=== PATIENT | male | born 1980 | race American Indian/Alaskan Native ===

== ENCOUNTER 2021-03-15 20:15 | Emergency (ER) | payer OTHER ==
--- NOTE | 2021-03-16 00:20 | XRay Report ---
Chest 2 views INDICATION: Chest pain with cough IMPRESSION: Severe bilateral multifocal airspace pneumonia. The heart is borderline enlarged. No pleu ral effusion. Signer Name: Tra Mejias MD Signed: 03/16/2021 12:16 AM Workstation Name: [id number]
--- NOTE | 2021-03-16 01:08 | Emergency Department Report ---
- General Chief Complaint: Upper Respiratory Infection Stated Complaint: HEART BEATING FAST Source: patient Mode of arrival: Ambulatory Limitations: No Limitations - History of Present Illness Initial Comments: Patient is a 41-year-old -Palest[place] male with a history of HIV and on oral ARV medications presents to the ED with complaint of acute onset persistent nasal and sinus congestion, persistent dry cough and intermittent chills for the last 2 weeks, worse in the last 3 days. Patient states that he has also been feeling lightheaded with body aches and pains. Patient states that he has been taking [id number] medications with no relief. Patient denies fever, nausea and vomiting, chest pain or shortness of breath, dizziness, syncope, abdominal pain, dysuria, urinary frequency and urgency, sore throat or diarrhea. Patient states that no one else at home is at similar symptoms. MD Complaint: cough, rhinorrhea, nasal congestion, sinus pain -: Sudden, week(s) (2) Severity: moderate Severity scale (0 -10): 4 Quality: dull, aching Consistency: constant Improves With: nothing Worsens With: nothing Context: sick contacts Associated Symptoms: denies other symptoms, chills, myalgias, headache, rhinorrhea, nasal congestion, cough. denies: fever, diaphoresis, sore throat, stiff neck, chest pain, shortness of breath, abdominal pain, nausea, vomiting, diarrhea, dysuria, rash, confusion, right sweats, weight loss, epistaxis, hoarseness, ear pain Treatments Prior to Arrival: Ibuprofen, "cold medicine" - Related Data Previous Rx's Medication Instructions Recorded Last Taken Type Ibuprofen [Motrin 600 MG tab] 600 mg PO Q8H PRN #20 tablet 07/25/19 Unknown Rx Methocarbamol [Robaxin] 500 mg PO BID PRN #15 tablet 07/25/19 Unknown Rx Albuterol Sulfate [Proventil Hfa] 1 - 2 puff IH Q6H PRN #1 hfa.aer.ad 03/16/21 Unknown Rx Benzonatate [Tessalon Perles] 100 mg PO Q8HR #30 capsule 03/16/21 Unknown Rx Doxycycline Hyclate 100 mg PO Q12H #20 tablet. 03/16/21 Unknown Rx Sulfamethoxazole/Trimethoprim 1 each PO Q12H #20 tablet 03/16/21 Unknown Rx [Bactrim DS TAB] methylPREDNISolone [Medrol 4MG 4 mg PO DAILY #21 tab.ds.pk 03/16/21 Unknown Rx DOSEPAK (21 tabs)] Allergies Allergy/AdvReac Type Severity Reaction Status Date / Time No Known Allergies Allergy Unverified 07/25/19 12:04 ED Review of Systems ROS: Stated complaint: HEART BEATING FAST Other details as noted in HPI Constitutional: chills, malaise, weakness. denies: fever Eyes: denies: eye pain, eye discharge, vision change ENT: congestion. denies: ear pain, throat pain Respiratory: cough. denies: shortness of breath, wheezing Cardiovascular: denies: chest pain, palpitations Endocrine: no symptoms reported Gastrointestinal: denies: abdominal pain, nausea, vomiting, diarrhea Genitourinary: denies: urgency, dysuria Musculoskeletal: arthralgia, myalgia. denies: back pain, joint swelling Skin: denies: rash, lesions Neurological: denies: headache, weakness, paresthesias Psychiatric: denies: anxiety, depression Hematological/Lymphatic: denies: easy bleeding, easy bruising ED Past Medical Hx - Past Medical History Previous Medical History?: Yes Hx HIV: Yes - Surgical History Past Surgical History?: Yes Additional Surgical History: Hx of back surgery - Social History Smoking Status: Never Smoker Substance Use Type: None - Medications Home Medications: Home Medications Medication Instructions Recorded Confirmed Last Taken Type Ibuprofen [Motrin 600 MG tab] 600 mg PO Q8H PRN #20 tablet 07/25/19 Unknown Rx Methocarbamol [Robaxin] 500 mg PO BID PRN #15 tablet 07/25/19 Unknown Rx Albuterol Sulfate [Proventil Hfa] 1 - 2 puff IH Q6H PRN #1 hfa.aer.ad 03/16/21 Unknown Rx Benzonatate [Tessalon Perles] 100 mg PO Q8HR #30 capsule 03/16/21 Unknown Rx Doxycycline Hyclate 100 mg PO Q12H #20 tablet. 03/16/21 Unknown Rx Sulfamethoxazole/Trimethoprim 1 each PO Q12H #20 tablet 03/16/21 Unknown Rx [Bactrim DS TAB] methylPREDNISolone [Medrol 4MG 4 mg PO DAILY #21 tab.ds.pk 03/16/21 Unknown Rx DOSEPAK (21 tabs)] ED Physical Exam - General Limitations: No Limitations General appearance: alert, in no apparent distress - Head Head exam: Present: atraumatic, normocephalic, normal inspection - Eye Eye exam: Present: normal appearance, PERRL, EOMI Pupils: Present: normal accommodation - ENT ENT exam: Present: normal exam, normal orophraynx, mucous membranes moist, TM's normal bilaterally, normal external ear exam - Neck Neck exam: Present: normal inspection, full ROM - Respiratory Respiratory exam: Present: normal lung sounds bilaterally. Absent: respiratory distress, wheezes, rales, rhonchi, stridor, chest wall tenderness, accessory muscle use - Cardiovascular Cardiovascular Exam: Present: regular rate, normal rhythm, normal heart sounds. Absent: systolic murmur, diastolic murmur, rubs, gallop - GI/Abdominal GI/Abdominal exam: Present: soft, normal bowel sounds. Absent: tenderness, guarding, rebound, hyperactive bowel sounds - Extremities Exam Extremities exam: Present: normal inspection, full ROM, normal capillary refill - Back Exam Back exam: Present: normal inspection, full ROM. Absent: tenderness, CVA tenderness (R), CVA tenderness (L), muscle spasm, paraspinal tenderness, vertebral tenderness - Neurological Exam Neurological exam: Present: alert, oriented X3, CN II-XII intact, normal gait, reflexes normal - Psychiatric Psychiatric exam: Present: normal affect, normal mood - Skin Skin exam: Present: warm, dry, intact, normal color. Absent: rash ED Course Vital Signs 03/15/21 20:43 Pulse Rate 94 H Respiratory 16 Rate Blood Pressure 109/88 [Right] O2 Sat by Pulse 98 Oximetry ED Medical Decision Making - Radiology Data Radiology results: report reviewed, image reviewed [address] [address] XRay Report Signed Patient: JUNIOR MJ MR#: [id number] : 1980 Acct:[id number] Age/Sex: 41 / M ADM Date: 03/15/21 Loc: ED Attending Dr: Ordering Physician: ARELI PATHAK Date of Service: 03/15/21 Procedure(s): XR chest routine 2V Accession Number(s): [id number] cc: ARELI PATHAK Fluoro Time In Minutes: Chest 2 views INDICATION: Chest pain with cough IMPRESSION: Severe bilateral multifocal airspace pneumonia. The heart is borderline enlarged. No pleural effusion. Signer Name: Tra Mejias MD Signed: 03/16/2021 12:16 AM Workstation Name: [id number] Transcribed By: Dictated By: Tra Mejias MD Electronically Authenticated By: Tra Mejias MD Signed Date/Time: 03/16/2115 DD/ TD/TT: - Medical Decision Making This is a 41-year-old -Palestinian male with a history of HIV and on oral ARV medications presents to the ED with complaint of acute onset persistent nasal and sinus congestion, persistent dry cough and intermittent chills for the last 2 weeks, worse in the last 3 days. Patient states that he has also been feeling lightheaded with body aches and pains. Patient states that he has been taking [id number] medications with no relief. In the ED, patient is alert and oriented x3 and is not in any distress with normal vital signs and oxygen saturation is 98% in room air. Chest x-ray shows severe bilateral multifocal airspace pneumonia. The heart is borderline enlarged. No pleural effusion. Patient received Rocephin 1 g IM x1 and azithromycin 500 mg p.o. x1 in the ED. Patient is hemodynamically stable and was discharged home on antibiotics, albuterol inhaler, and cough medication and was advised to follow-up with his primary care physician in 7 to 10 days for reevaluation. Patient was advised to return to the ED immediately if symptoms get worse. - Differential Diagnosis Bronchitis; pneumonia; COVID-19; URI; Critical care attestation.: If time is entered above; I have spent that time in minutes in the direct care of this critically ill patient, excluding procedure time. ED Disposition Clinical Impression: Acute upper respiratory infection Community acquired pneumonia Qualifiers: Laterality: unspecified laterality Qualified Code(s): J18.9 - Pneumonia, unspecified organism Disposition: HOME / SELF CARE / HOMELESS Is pt being admited?: No Does the pt Need Aspirin: No Condition: Stable Instructions: Bacterial Pneumonia (ED), Upper Respiratory Infection, Adult, Xygq-hp-[id number], Community-Acquired Pneumonia, Adult, Ajgk-ce-Ulyu, Cough, Adult, Rakw-vo-Dogr Additional Instructions: Take medication with food, drink plenty of fluids and follow-up with your primary care physician in 7 to 10 days for reevaluation. Return to the ED immediately if symptoms get worse. Prescriptions: Sulfamethoxazole/Trimethoprim [Bactrim DS TAB] 1 each PO Q12H #20 tablet Doxycycline Hyclate 100 mg PO Q12H #20 tablet. methylPREDNISolone [Medrol 4MG DOSEPAK (21 tabs)] 4 mg PO DAILY #21 tab.ds.pk Albuterol Sulfate [Proventil Hfa] 1 - 2 puff IH Q6H PRN #1 hfa.aer.ad PRN Reason: Shortness Of Breath Benzonatate [Tessalon Perles] 100 mg PO Q8HR #30 capsule Referrals: [facility] [Provider Group] - 3-5 Days Time of Disposition: 01:10 Print Language: KOREAN
[2021-03-16] MEDS ORDERED: LIDOCAINE-MPF (1%) 10 MG/1 ML VIAL 5 ML INFILTRATI ONE (01:14)
[2021-03-16] MEDS ORDERED: AZITHROMYCIN 250 MG TAB PO ONE (01:14)
[2021-03-16 02:36] VITALS: BP 131/85
== END 2021-03-16 02:36 | disposition home or self-care (01) ==
LOC: ED 20:15
DX: J06.9 Acute upper respiratory infection, unspecified (principal); J18.9 Pneumonia, unspecified organism; Z79.899 Other long term (current) drug therapy; Z21 Asymptomatic human immunodeficiency virus [HIV] infection status; Z98.890 Other specified postprocedural states
CPT/HCPCS: 71046; 96372; 99283; J0696

== ENCOUNTER 2021-05-29 17:40 | Inpatient (IN) | payer SELFPAY ==
[2021-05-29] MEDS ORDERED: ASPIRIN 325 MG TAB PO ONE (19:51)
[2021-05-29] MEDS ORDERED: predniSONE 20 MG TAB PO ONE (19:51)
--- NOTE | 2021-05-29 20:19 | XRay Report ---
CHEST 2 VIEWS INDICATION / CLINICAL INFORMATION: Dyspnea. COMPARISON: 03/15/2021 FINDINGS: SUPPORT DEVICES: None. HEART / MEDIASTINUM: Upper limits of normal heart size. LUNGS / PLEURA: Pulmonary vascular indistinctness. No focal consolidation. No pneumothorax. ADDITIONAL FINDINGS: No significant additional findings. IMPRESSION: 1. Mild pulmonary edema. Signer Name: Alvin Groves DO Signed: 05/29/2021 8:14 PM Workstation Name: [id number]
[2021-05-29 20:55] LABS: Hemoglobin 13.6 gm/dl (11.8-15.2); Red Blood Count 4.49 M/mm3 (3.65-5.03)
[2021-05-29 20:56] LABS: Basophils # (Auto) 0.1 K/mm3 (0.0-0.1); Eosinophils % (Auto) 0.6 % (0.0-4.3); Hematocrit 41.7 % (35.5-45.6); Lymphocytes # (Auto) 3.3 K/mm3 (1.2-5.4); Mean Corpuscular HGB Conc 33 % (32-34); Mean Corpuscular Volume 93 fl (84-94); Monocytes # (Auto) 0.5 K/mm3 (0.0-0.8); Monocytes % (Auto) 6.8 % (0.0-7.3); Platelet Count 244 K/mm3 (140-440); Red Cell Distribution Width 13.6 % (13.2-15.2)
[2021-05-29 21:11] LABS: Bacteria,Urine 1+ /HPF (Negative); Bilirubin,Urine NEG (Negative); Blood,Urine NEG (Negative); Color,Urine Yellow (Yellow); Mucus,Urine FEW /HPF; Urobilinogen,Urine < 2.0 mg/dL (<2.0)
[2021-05-29 21:15] LABS: Protein,Urine >500 mg/dL (Negative)
[2021-05-29 22:07] LABS: Alanine Aminotransferase 66 units/L (7-56); Albumin 3.8 g/dL (3.9-5); BUN/Creatinine Ratio 15; Blood Urea Nitrogen 16 mg/dL (9-20); Calcium 9.1 mg/dL (8.4-10.2); Hemolysis Index 30
[2021-05-29] MEDS ORDERED: FUROSEMIDE 40 MG/4 ML INJ IV ONE (22:33)
--- NOTE | 2021-05-29 22:41 | Emergency Department Report ---
ED Chest Pain HPI - General Chief Complaint: Chest Pain Stated Complaint: CHEST PAIN Source: patient Mode of arrival: Ambulatory Limitations: No Limitations - History of Present Illness Initial Comments: Patient is a 41-year-old -Turkmen male with a history of HIV and on ARV medications, who presents to the ED with complaint of acute onset persistent shortness of breath on exertion, diffuse chest pressure and pain intermittently for the last 2 weeks worse in the last 3 days. Patient states that walking even from his bedroom to the bathroom causes him to be short of breath. Patient denies fever, chills, nausea, vomiting, diarrhea, dizziness, syncope, palpitations, change in vision, cough, abdominal pain, dysuria, urinary frequency and urgency or sore throat. MD Complaint: chest pain, other (dyspnea, generalized weakness) -: Sudden, week(s) (2) Onset: during exertion Pain Location: substernal Pain Radiation: none Severity: moderate Severity scale (0 -10): 5 Quality: aching, dull, pressure Consistency: intermittent Improves With: rest Worsens With: exertion, movement re: dyspnea. denies: nausea, vomting, diaphoresis, sense of impending doom Other Symptoms: cough. denies: fever, syncope, rash, acid taste in mouth, leg swelling, palpitations, burping, other Treatments Prior to Arrival: none - Related Data On Oral Contraceptives: No Previous Rx's Medication Instructions Recorded Last Taken Type Ibuprofen [Motrin 600 MG tab] 600 mg PO Q8H PRN #20 tablet 07/25/19 Unknown Rx Methocarbamol [Robaxin] 500 mg PO BID PRN #15 tablet 07/25/19 Unknown Rx Albuterol Sulfate [Proventil Hfa] 1 - 2 puff IH Q6H PRN #1 hfa.aer.ad 03/16/21 Unknown Rx Benzonatate [Tessalon Perles] 100 mg PO Q8HR #30 capsule 03/16/21 Unknown Rx Doxycycline Hyclate 100 mg PO Q12H #20 tablet. 03/16/21 Unknown Rx Sulfamethoxazole/Trimethoprim 1 each PO Q12H #20 tablet 03/16/21 Unknown Rx [Bactrim DS TAB] methylPREDNISolone [Medrol 4MG 4 mg PO DAILY #21 tab.ds.pk 03/16/21 Unknown Rx DOSEPAK (21 tabs)] Allergies Allergy/AdvReac Type Severity Reaction Status Date / Time No Known Allergies Allergy Unverified 07/25/19 12:04 Heart Score - HEART Score History: Slightly suspicious EKG: Non-specific Age: < 45 Risk factors: 1-2 risk factors Troponin: < normal limit HEART Score: 2 - EKG Read Time Time EKG Completed: 17:49 EKG Read Time: 17:49 - Critical Actions Critical Actions: 0-3 pts:0.9-1.7%risk of adverse cardiac event.Candidate for discharge ED Review of Systems ROS: Stated complaint: CHEST PAIN Other details as noted in HPI Constitutional: denies: chills, fever Eyes: denies: eye pain, eye discharge, vision change ENT: denies: ear pain, throat pain Respiratory: cough, orthopnea, shortness of breath, SOB with exertion. denies: wheezing Cardiovascular: chest pain (pressure), dyspnea on exertion. denies: palpitations Endocrine: no symptoms reported Gastrointestinal: denies: abdominal pain, nausea, vomiting, diarrhea Genitourinary: denies: urgency, dysuria Musculoskeletal: denies: back pain, joint swelling, arthralgia Skin: denies: rash, lesions Neurological: denies: headache, weakness, paresthesias Psychiatric: denies: anxiety, depression Hematological/Lymphatic: denies: easy bleeding, easy bruising ED Past Medical Hx - Past Medical History Hx HIV: Yes - Surgical History Past Surgical History?: Yes Additional Surgical History: Hx of back surgery - Social History Smoking Status: Never Smoker Substance Use Type: None - Medications Home Medications: Home Medications Medication Instructions Recorded Confirmed Last Taken Type Ibuprofen [Motrin 600 MG tab] 600 mg PO Q8H PRN #20 tablet 07/25/19 Unknown Rx Methocarbamol [Robaxin] 500 mg PO BID PRN #15 tablet 07/25/19 Unknown Rx Albuterol Sulfate [Proventil Hfa] 1 - 2 puff IH Q6H PRN #1 hfa.aer.ad 03/16/21 Unknown Rx Benzonatate [Tessalon Perles] 100 mg PO Q8HR #30 capsule 03/16/21 Unknown Rx Doxycycline Hyclate 100 mg PO Q12H #20 tablet. 03/16/21 Unknown Rx Sulfamethoxazole/Trimethoprim 1 each PO Q12H #20 tablet 03/16/21 Unknown Rx [Bactrim DS TAB] methylPREDNISolone [Medrol 4MG 4 mg PO DAILY #21 tab.ds.pk 03/16/21 Unknown Rx DOSEPAK (21 tabs)] ED Physical Exam - General Limitations: No Limitations General appearance: alert, in no apparent distress - Head Head exam: Present: atraumatic, normocephalic, normal inspection - Eye Eye exam: Present: normal appearance, PERRL, EOMI Pupils: Present: normal accommodation - ENT ENT exam: Present: normal exam, normal orophraynx, mucous membranes moist, TM's normal bilaterally, normal external ear exam - Neck Neck exam: Present: normal inspection, full ROM - Respiratory Respiratory exam: Present: normal lung sounds bilaterally. Absent: respiratory distress, wheezes, rales, chest wall tenderness, accessory muscle use, decreased breath sounds, prolonged expiratory - Cardiovascular Cardiovascular Exam: Present: regular rate, normal rhythm, normal heart sounds. Absent: systolic murmur, diastolic murmur, rubs, gallop - GI/Abdominal GI/Abdominal exam: Present: soft, normal bowel sounds. Absent: tenderness, guarding, rebound, hyperactive bowel sounds, hypoactive bowel sounds, organomegaly - Extremities Exam Extremities exam: Present: normal inspection, full ROM, normal capillary refill - Back Exam Back exam: Present: normal inspection, full ROM. Absent: tenderness, CVA tenderness (R), CVA tenderness (L), muscle spasm, paraspinal tenderness, verteb ral tenderness - Neurological Exam Neurological exam: Present: alert, oriented X3, CN II-XII intact, normal gait, reflexes normal - Psychiatric Psychiatric exam: Present: normal affect, normal mood - Skin Skin exam: Present: warm, dry, intact, normal color. Absent: rash JEREMY score - Jeremy Score Age > 65: (0) No Aspirin use within the Past 7 Days: (0) No 3 or more CAD Risk Factors: (0) No 2 or more Angina events in past 24 hrs: (0) No Known CAD with more than 50% Stenosis: (0) No Elevated Cardiac Markers: (0) No ST Deviation Greater than 0.5mm: (0) No JEREMY Score: 0 ED Medical Decision Making - Lab Data Result diagrams: 05/29/21 20:24 05/29/21 20:24 - EKG Data EKG shows normal: sinus rhythm Rate: normal - EKG Data Interpretation: normal EKG 05/29/21 22:51 The EKG shows normal sinus rhythm with a ventricular rate of 89 bpm but with probable left ventricular hypertrophy and nonspecific T wave abnormalities. - Radiology Data Radiology results: report reviewed, image reviewed [facility] [address] [place] [address] XRay Report Signed Patient: JUNIOR MJ MR#: [id number] : 1980 Acct:[id number] Age/Sex: 41 / M ADM Date: 05/29/21 Loc: ED Attending Dr: Ordering Physician: ARELI PATHAK Date of Service: 05/29/21 Procedure(s): XR chest routine 2V Accession Number(s): [id number] cc: ARELI PATHAK Fluoro Time In Minutes: CHEST 2 VIEWS INDICATION / CLINICAL INFORMATION: Dyspnea. COMPARISON: 03/15/2021 FINDINGS: SUPPORT DEVICES: None. HEART / MEDIASTINUM: Upper limits of normal heart size. LUNGS / PLEURA: Pulmonary vascular indistinctness. No focal consolidation. No pneumothorax. ADDITIONAL FINDINGS: No significant additional findings. IMPRESSION: 1. Mild pulmonary edema. Signer Name: Alvin Gutierres DO Signed: 05/29/2021 8:14 PM Workstation Name: [id number] Transcribed By: ROHAN Dictated By: ALVIN GUTIERRES DO Electronically Authenticated By: ALVIN GUTIERRES DO Signed Date/Time: 05/29/212013 DD/ 12 TD/TT: - Medical Decision Making This is a 41-year-old -Turkmen male with a history of HIV and on ARV medications, who presents to the ED with complaint of acute onset persistent shortness of breath on exertion, diffuse chest pressure and pain intermittently for the last 2 weeks worse in the last 3 days. Patient states that walking even from his bedroom to the bathroom causes him to be short of breath. In the ED, patient is alert and oriented x3 and is not in any distress. Patient is hemodynamically stable with oxygen saturation of 100% in room air. Chest x-ray shows mild Pulmonary edema. Lab test results were reviewed and showed a normal initial troponin level, elevated LFTs with AST of 58 and ALT of 66 and a BNP of 4313. The EKG shows normal sinus rhythm with a ventricular rate of 89 bpm but with probable left ventricular hypertrophy and nonspecific T wave abnormalities. Patient was treated in the ED initially with aspirin 325 mg p.o. x1 and oral steroids for prednisone 60 mg p.o. x1. These findings were discussed with the ED attending physician Dr. Martinez who advised the patient be admitted to the hospital since this is a new onset CHF. I therefore paged and discussed the patient's case with the hospitalist physician on-call Dr. Sales who admitted the patient to the hospital for further evaluation. Meanwhile patient was started on Lasix 40 mg IV x1 and placed on equipment monitor phototypesetting. - Differential Diagnosis CHF, Pneumonia, Covid-19, ACS, PE Critical Care Time: Yes Critical care time in (mins) excluding proc time.: 35 Critical care attestation.: If time is entered above; I have spent that time in minutes in the direct care of this critically ill patient, excluding procedure time. Critical care time of 35 minutes spent on patient counseling and education regarding his care, interpretation of lab test results and imaging reports, documentation and discussion with specialists. Critical Care Time: Critical care time of 35 minutes spent on patient counseling and education regarding his care, interpretation of lab test results and imaging reports, documentation and discussion with specialists. ED Disposition Clinical Impression: Shortness of breath on exertion, Nonspecific chest pain, New onset of congestive heart failure Disposition: 02 [facility]ORT TERM [facility]OSPITAL Is pt being admited?: Yes Does the pt Need Aspirin: Yes Condition: Stable Instructions: Nonspecific Chest Pain, Adult Referrals: PRIMARY CARE, [Primary Care Provider] - 3-5 Days Time of Disposition: 22:44 Print Language: CYPRIOT
[2021-05-29] MEDS ORDERED: ONDANSETRON 4 MG/2 ML INJ IV PRN (22:56)
[2021-05-29] MEDS ORDERED: oxyCODONE /ACETAMINOPHEN 5-325MG TAB PO PRN (22:56)
[2021-05-29] MEDS ORDERED: MORPHINE 4 MG/1 ML INJ IV PRN (22:56)
[2021-05-29] MEDS ORDERED: ACETAMINOPHEN 325 MG TAB PO PRN (22:56)
[2021-05-29] MEDS ORDERED: NITROGLYCERIN 0.4 MG TAB SUBL SL PRN (23:36)
[2021-05-29] MEDS ORDERED: HYDROmorphone 1 MG/1 ML INJ IV PRN (23:36)
[2021-05-29] MEDS ORDERED: traMADol 50 MG TAB PO PRN (23:36)
[2021-05-29] MEDS ORDERED: IBUPROFEN 600 MG TAB PO PRN (23:39)
--- NOTE | 2021-05-29 23:44 | History and Physical Report ---
History of Present Illness Date of examination: 05/29/21 Date of admission: 05/29/21 Chief complaint: Chest pain Shortness of breath History of present illness: 41-year-old male with history of HIV and on ARV medications, who presents to the ED with complaint of acute onset persistent shortness of breath on exertion, diffuse chest pressure and pain intermittently for the last 2 weeks worse in the last 3 days. Patient states that walking even from his bedroom to the bathroom causes him to be short of breath. Patient denies fever, chills, nausea, vomiting, diarrhea, dizziness, syncope, palpitations, change in vision, cough, abdominal pain, dysuria, urinary frequency and urgency or sore throat. In the emergency room patient is found to have acute CHF exacerbation patient chest x-ray showed mild pulmonary edema also patient proBNP is 4313 but troponin is 0.010. Med rec is done Past History Past Medical History: HIV/AIDS Medications and Allergies Allergies Allergy/AdvReac Type Severity Reaction Status Date / Time No Known Allergies Allergy Verified 05/29/21 22:59 Home Medications Medication Instructions Recorded Confirmed Last Taken Type Ibuprofen [Motrin 600 MG tab] 600 mg PO Q8H PRN #20 tablet 07/25/19 Unknown Rx Methocarbamol [Robaxin] 500 mg PO BID PRN #15 tablet 07/25/19 Unknown Rx Albuterol Sulfate [Proventil Hfa] 1 - 2 puff IH Q6H PRN #1 hfa.aer.ad 03/16/21 Unknown Rx Benzonatate [Tessalon Perles] 100 mg PO Q8HR #30 capsule 03/16/21 Unknown Rx Doxycycline Hyclate 100 mg PO Q12H #20 tablet. 03/16/21 Unknown Rx Sulfamethoxazole/Trimethoprim 1 each PO Q12H #20 tablet 03/16/21 Unknown Rx [Bactrim DS TAB] methylPREDNISolone [Medrol 4MG 4 mg PO DAILY #21 tab.ds.pk 03/16/21 Unknown Rx DOSEPAK (21 tabs)] Active Meds: Active Medications Acetaminophen (Acetaminophen 325 Mg Tab) 650 mg PO Q4H PRN PRN Reason: Pain MILD(1-3)/Fever >100.5/MARTELL Morphine Sulfate (Morphine 4 Mg/1 Ml Inj) 4 mg IV Q4H PRN PRN Reason: Pain , Severe (7-10) Ondansetron HCl (Ondansetron 4 Mg/2 Ml Inj) 4 mg IV Q8H PRN PRN Reason: Nausea And Vomiting Last Admin: 05/29/21 23:15 Dose: 4 mg Documented by: Oxycodone/Acetaminophen (Oxycodone /Acetaminophen 5-325mg Tab) 1 tab PO Q6H PRN PRN Reason: Pain, Moderate (4-6) Sodium Chloride (Sodium Chloride 0.9% 10 Ml Flush Syringe) 10 ml IV BID DARVIN Sodium Chloride (Sodium Chloride 0.9% 10 Ml Flush Syringe) 10 ml IV PRN PRN PRN Reason: LINE FLUSH Review of Systems All systems: negative Cardiovascular: chest pain, orthopnea, shortness of breath, dyspnea on exertion Exam - Constitutional Vitals: Temp Pulse Resp BP Pulse Ox 96 H 18 129/85 100 05/29/21 18:34 05/29/21 18:34 05/29/21 18:34 05/29/21 18:34 General appearance: Present: no acute distress, well-nourished - EENT Eyes: Present: PERRL ENT: hearing intact, clear oral mucosa - Neck Neck: Present: supple, normal ROM - Respiratory Respiratory effort: normal Respiratory: bilateral: rales - Cardiovascular Heart Sounds: Present: S1 & S2. Absent: rub, click - Extremities Extremities: pulses symmetrical, No edema Peripheral Pulses: within normal limits - Abdominal General gastrointestinal: Present: soft, non-tender, non-distended, normal bowel sounds Male genitourinary: Present: normal - Integumentary Integumentary: Present: clear, warm, dry - Musculoskeletal Musculoskeletal: gait normal, strength equal bilaterally - Psychiatric Psychiatric: appropriate mood/affect, intact judgment & insight - Neurologic Neurologic: CNII-XII intact, moves all extremities HEART Score - HEART Score EKG: Non-specific Age: < 45 Risk factors: 1-2 risk factors Troponin: Troponin T < 0.010 ng/mL (0.00-0.029) 05/29/21 20:24 Troponin: < normal limit - Critical Actions Critical Actions: 0-3 pts:0.9-1.7%risk of adverse cardiac event.Candidate for discharge Results - Labs CBC & Chem 7: 05/29/21 20:24 05/29/21 20:24 Labs: Laboratory Last Values WBC 6.6 K/mm3 (4.5-11.0) 05/29/21 20: RBC 4.49 M/mm3 (3.65-5.03) 05/29/21 20: Hgb 13.6 gm/dl (11.8-15.2) 05/29/21 20:24 Hct 41.7 % (35.5-45.6) 05/29/21 20: MCV 93 fl (84-94) 05/29/21 20: MCH 30 pg (28-32) 05/29/21 20: MCHC 33 % (32-34) 05/29/21 20: RDW 13.6 % (13.2-15.2) 05/29/21: Plt Count 244 K/mm3 (140-440) 05/29/21 20: Lymph % (Auto) 50.0 % (13.4-35.0) H 05/29/21: [place] % (Auto) 6.8 % (0.0-7.3) 05/29/21: Eos % (Auto) 0.6 % (0.0-4.3) 05/29/21: Baso % (Auto) 1.0 % (0.0-1.8) 05/29/21: Lymph # (Auto) 3.3 K/mm3 (1.2-5.4) 05/29/21 20: [place] # (Auto) 0.5 K/mm3 (0.0-0.8) 05/29/21: Eos # (Auto) 0.0 K/mm3 (0.0-0.4) 05/29/21 20: Baso # (Auto) 0.1 K/mm3 (0.0-0.1) 05/29/21: Seg Neutrophils % 41.6 % (40.0-70.0) 05/29/21: Seg Neutrophils # 2.7 K/mm3 (1.8-7.7) 05/29/21 20:24 Sodium 137 mmol/L (137-145) 05/29/21 20: Potassium 4.4 mmol/L (3.6-5.0) 05/29/21 20: Chloride 104.8 mmol/L (98-107) 05/29/21 20:24 Carbon Dioxide 20 mmol/L (22-30) L 05/29/21 20:24 Anion Gap 17 mmol/L 05/29/21 20:24 BUN 16 mg/dL (9-20) 05/29/21 20:24 Creatinine 1.1 mg/dL (0.8-1.3) 05/29/21 20:24 Estimated GFR > 60 ml/min 05/29/21 20:24 BUN/Creatinine Ratio 15 % 05/29/21 20:24 Glucose 78 mg/dL (75-100) 05/29/21 20:24 Calcium 9.1 mg/dL (8.4-10.2) 05/29/21 20:24 Total Bilirubin 1.00 mg/dL (0.1-1.2) 05/29/21 20:24 AST 58 units/L (5-40) H 05/29/21 20:24 ALT 66 units/L (7-56) H 05/29/21 20:24 Alkaline Phosphatase 110 units/L (35-129) 05/29/21 20:24 Troponin T < 0.010 ng/mL (0.00-0.029) 05/29/21 20:24 NT-Pro-B Natriuret Pep 4313 pg/mL (0-450) H 05/29/21 20:24 Total Protein 7.4 g/dL (6.3-8.2) 05/29/21 20:24 Albumin 3.8 g/dL (3.9-5) L 05/29/21 20:24 Albumin/Globulin Ratio 1.1 % 05/29/21 20: Urine Color Yellow (Yellow) 05/29/21 20:23 Urine Turbidity Clear (Clear) 05/29/21 20:23 Urine pH 5.0 (5.0-7.0) 05/29/21 20: Ur Specific [place] 1.022 (1.003-1.030) 05/29/21 20: Urine Protein >500 mg/dL (Negative) 05/29/21 20: Urine Glucose (UA) Neg mg/dL (Negative) 05/29/21 20: Urine Ketones Tr mg/dL (Negative) 05/29/21 20: Urine Blood Neg (Negative) 05/29/21 20:23 Urine Nitrite Neg (Negative) 05/29/21 20:23 Urine Bilirubin Neg (Negative) 05/29/21 20:23 Urine Urobilinogen < 2.0 mg/dL (<2.0) 05/29/21 20:23 Ur Leukocyte Esterase Neg (Negative) 05/29/21 20:23 Urine WBC (Auto) 2.0 /HPF (0.0-6.0) 05/29/21 20:23 Urine RBC (Auto) 2.0 /HPF (0.0-6.0) 05/29/21 20:23 U Epithel Cells (Auto) 1.0 /HPF (0-13.0) 05/29/21 20:23 Urine Bacteria (Auto) 1+ /HPF (Negative) 05/29/21 20: Urine Mucus Few /HPF 05/29/21 20:23 - Imaging and Cardiology Chest x-ray: report reviewed Assessment and Plan VTE prophylaxis?: Chemical Plan of care discussed with patient/family: Yes - Patient Problems (1) New onset of congestive heart failure Current Visit: Yes Status: Acute Plan to address problem: Admit the patient to the medical telemetry. Oxygen via nasal cannula 3 L/min . DuoNeb by nebulizer every 4 hours. Lasix 40 mg IV every 12 hours. Fluid restriction. Daily weight. Echocardiogram. Cardiology evaluation (2) Acute coronary syndrome Current Visit: Yes Status: Acute Plan to address problem: Aspirin 325 mg p.o. daily. Lipitor 40 mg p.o. daily. Nitroglycerin as needed. We do the serial cardiac enzyme. Echocardiogram. Cardiology evaluation. (3) HIV (human immunodeficiency virus infection) Current Visit: Yes Status: Acute Plan to address problem: Stable. We will continue the home HIV medication. Outpatient follow-up with infectious disease (4) Shortness of breath on exertion Current Visit: Yes Status: Acute Plan to address problem: Oxygen via nasal cannula 3 L/min . DuoNeb by nebulizer every 4 hours. Lasix 4 0 mg IV every 12 hours. Fluid restriction. Daily weight. Echocardiogram. Cardiology evaluation. (5) DVT prophylaxis Current Visit: Yes Status: Acute Plan to address problem: Heparin 5000 units subcu every 8 hours for DVT prophylaxis. Pepcid 20 mg p.o. twice daily for GI prophylaxis. Patient is a full code
[2021-05-29] MEDS ORDERED: DOXYCYCLINE HYCLATE 100 MG PO SCH (23:45)
[2021-05-30] MEDS: HEPARIN 5,000 UNIT/1 ML VIAL SUB-Q SCH ×3 (06:01→21:45)
[2021-05-30] MEDS: FUROSEMIDE 40 MG/4 ML INJ IV SCH ×2 (06:01→17:18)
[2021-05-30] MEDS: BENZONATATE 100 MG CAP PO SCH ×3 (06:01→21:46)
--- NOTE | 2021-05-30 11:54 | Consultation ---
History of Present Illness Consult date: 05/30/21 Requesting physician: VERN BRUNNER Consult reason: congestive heart failure History of present illness: He claims that he has had intermittent substernal chest pain especially with coughing over the past 2 weeks. In addition, he has been progressive experiencing exertional dyspnea over the same period. He denies orthopnea or PND. There is no fever or chills. Upon presentation, his BNP is significantly elevated. He has no prior history of heart disease. Past History Past Medical History: HIV/AIDS Past Surgical History: Other (Right hip surgery.) Social history: denies: smoking, alcohol abuse Family history: denies: CAD Medications and Allergies Allergies Allergy/AdvReac Type Severity Reaction Status Date / Time No Known Allergies Allergy Verified 05/29/21 22:59 Home Medications Medication Instructions Recorded Confirmed Last Taken Type Unobtainable 05/30/21 05/30/21 Unknown History Active Meds: Active Medications Acetaminophen (Acetaminophen 325 Mg Tab) 650 mg PO Q4H PRN PRN Reason: Pain MILD(1-3)/Fever >100.5/MARTELL Aspirin (Aspirin Ec 325 Mg Tab) 325 mg PO QDAY [facility] Atorvastatin Calcium (Atorvastatin 40 Mg Tab) 40 mg PO QHS [facility] Benzonatate (Benzonatate 100 Mg Cap) 100 mg PO Q8HR [facility] Last Admin: 05/30/21 06:01 Dose: 100 mg Documented by: Doxycycline Hyclate (Doxycycline 100 Mg Cap) 100 mg PO Q12HR [facility] Furosemide (Furosemide 40 Mg/4 Ml Inj) 40 mg IV BID@0600,1800 [facility] Last Admin: 05/30/21 06:01 Dose: 40 mg Documented by: Heparin Sodium (Porcine) (Heparin 5,000 Unit/1 Ml Vial) 5,000 unit SUB-Q Q8HR [facility] Last Admin: 05/30/21 06:01 Dose: 5,000 unit Documented by: Hydromorphone HCl (Hydromorphone 1 Mg/1 Ml Inj) 0.25 mg IV Q5MIN PRN PRN Reason: Chest Pain Ibuprofen (Ibuprofen 600 Mg Tab) 600 mg PO Q8H PRN PRN Reason: Pain, Mild (1-3) Methocarbamol (Methocarbamol 500 Mg Tab) 500 mg PO BID PRN PRN Reason: Muscle Spasm Morphine Sulfate (Morphine 4 Mg/1 Ml Inj) 4 mg IV Q4H PRN PRN Reason: Pain , Severe (7-10) Nitroglycerin (Nitroglycerin 0.4 Mg Tab Subl) 0.4 mg SL Q5M PRN PRN Reason: Chest Pain Ondansetron HCl (Ondansetron 4 Mg/2 Ml Inj) 4 mg IV Q8H PRN PRN Reason: Nausea And Vomiting Last Admin: 05/29/21 23:15 Dose: 4 mg Documented by: Oxycodone/Acetaminophen (Oxycodone /Acetaminophen 5-325mg Tab) 1 tab PO Q6H PRN PRN Reason: Pain, Moderate (4-6) Pantoprazole Sodium (Pantoprazole 40 Mg Tab) 40 mg PO QDAY DARVIN Sodium Chloride (Sodium Chloride 0.9% 10 Ml Flush Syringe) 10 ml IV BID DARVIN Sodium Chloride (Sodium Chloride 0.9% 10 Ml Flush Syringe) 10 ml IV PRN PRN PRN Reason: LINE FLUSH Tramadol HCl (Tramadol 50 Mg Tab) 50 mg PO Q6H PRN PRN Reason: Pain, Moderate (4-6) Trimethoprim/Sulfamethoxazole (Sulfamethoxazole/Trimethoprim 800/160mg Ds Tab) 1 each PO Q12HR DARVIN; Protocol Review of Systems Constitutional: no fever, no chills Ears, nose, mouth and throat: no ear pain, no ear discharge, no hoarseness, no sore throat Cardiovascular: chest pain, shortness of breath, dyspnea on exertion, no orthopnea, no palpitations, no lightheadedness Respiratory: cough, dyspnea on exertion, no hemoptysis Gastrointestinal: no abdominal pain, no nausea, no vomiting, no diarrhea, no constipation Genitourinary Male: no dysuria, no urinary frequency Rectal: no pain, no bleeding Musculoskeletal: no neck stiffness, no neck pain, no myalgias Integumentary: no rash, no pruritis Neurological: no weakness, no parathesias, no headaches Endocrine: no cold intolerance, no heat intolerance Hematologic/Lymphatic: no easy bruising, no easy bleeding Allergic/Immunologic: no urticaria, no wheezing Physical Examination Vital Signs Last Vital Signs Temp 97.0 F L 05/30/21 11:15 Pulse 77 05/30/21 11:15 Resp 18 05/30/21 11:15 BP 101/65 05/30/21 11:15 Pulse Ox 94 05/30/21 11:15 General appearance: no acute distress HEENT: Positive: EOMI, Normocephaly, Mucus Membranes Moist Neck: Positive: neck supple, trachea midline, Carotid Upstroke (full) Cardiac: Positive: Reg Rate and Rhythm, S1/S2 Lungs: Positive: clear to auscultation Neuro: Positive: Grossly Intact Abdomen: Positive: Soft, Active Bowel Sounds. Negative: Tender Skin: Positive: Clear. Negative: Rash Musculoskeletal: Normal Range of Motion Extremities: Present: normal. Absent: edema Results 05/29/21 20:24 05/29/21 20:24 Cardiac Enzymes 05/29/21 Range/Units 20:24 AST 58 H (5-40) units/L CBC 05/29/21 Range/Units 20:24 WBC 6.6 (4.5-11.0) K/mm3 RBC 4.49 (3.65-5.03) M/mm3 Hgb 13.6 (11.8-15.2) gm/dl Hct 41.7 (35.5-45.6) % Plt Count 244 (140-440) K/mm3 Lymph # (Auto) 3.3 (1.2-5.4) K/mm3 [place] # (Auto) 0.5 (0.0-0.8) K/mm3 Eos # (Auto) 0.0 (0.0-0.4) K/mm3 Baso # (Auto) 0.1 (0.0-0.1) K/mm3 Comprehensive Metabolic Panel 05/29/21 Range/Units 20:24 Sodium 137 (137-145) mmol/L Potassium 4.4 (3.6-5.0) mmol/L Chloride 104.8 (98-107) mmol/L Carbon Dioxide 20 L (22-30) mmol/L BUN 16 (9-20) mg/dL Creatinine 1.1 (0.8-1.3) mg/dL Glucose 78 (75-100) mg/dL Calcium 9.1 (8.4-10.2) mg/dL AST 58 H (5-40) units/L ALT 66 H (7-56) units/L Alkaline Phosphatase 110 (35-129) units/L Total Protein 7.4 (6.3-8.2) g/dL Albumin 3.8 L (3.9-5) g/dL - Imaging and Cardiology EKG: image reviewed EKG interpretations - Telemetry EKG Rhythm: Sinus Rhythm - EKG Sinus rhythms and dysrhythmias: sinus rhythm AV and intraventricular conduction: intraventricular conducti Repolarization changes or abnormalities: ST or T wave suggestive of ischemia Assessment and Plan Agree with diuretics. Obtain echocardiogram. Schedule for Lexiscan stress MPI on Tuesday. - Patient Problems (1) Acute heart failure Current Visit: Yes Status: Acute (2) Atypical chest pain Current Visit: Yes Status: Acute (3) HIV (human immunodeficiency virus infection) Current Visit: Yes Status: Chronic
[2021-05-30] MEDS: DOXYCYCLINE 100 MG CAP PO SCH ×2 (12:16→21:46)
[2021-05-30] MEDS: SULFAMETHOXAZOLE/TRIMETHOPRIM 800/160MG DS TAB PO SCH ×2 (12:16→21:45)
[2021-05-30] MEDS: PANTOPRAZOLE 40 MG TAB PO SCH (12:17)
[2021-05-30] MEDS: ASPIRIN EC 325 MG TAB PO SCH (12:17)
--- NOTE | 2021-05-30 18:34 | Progress Note ---
Assessment and Plan Assessment and plan: --New onset of acute congestive heart failure Current Visit: Yes Status: Acute Diuretics, input output monitoring, low-sodium diet, fluid restriction Check echocardiogram for LV function ejection fraction Cardiology evaluation and recommendations noted and appreciated --Acute shortness of breath on exertion Current Visit: Yes Status: Acute Probably secondary to possible congestive heart failure, oxygen titrate O2 sats more than 90% Antifailure medications with diuretics beta-blockers if blood pressures permit input output monitoring Low-sodium diet, home O2 evaluation at discharge, follow echo with LV function ejection fraction -- atypical chest pain/evaluate acute coronary syndrome Current Visit: Yes Status: Acute Serial cardiac enzymes , serial EKGs as needed for chest pain aspirin 325 mg p.o. daily. Lipitor 40 mg p.o. daily. Nitroglycerin as needed. Patient's blood pressure in the lower range, will hold off beta-blockers Follow cardiology evaluation recommendations Possible stress test on 06/01/2021 --GERD; Current Visit: Yes Status: Acute Probably the cause of atypical chest pain Pepcid and supportive care -- HIV (human immunodeficiency virus infection) Current Visit: Yes Status:Chronic Stable. Continue home HIV medications Patient will follow with private ID/health department upon discharge --DVT prophylaxis Current Visit: Yes Status: Acute Heparin 5000 units subcu every 8 hours for DVT prophylaxis. Closely monitor the patient and adjust management as needed Plan of care reviewed with the patient and his nurse Cardiology evaluation noted and appreciated History Interval history: I have seen and examined the patient at the bedside this morning Patient's chart and medications reviewed Admitted with intermittent chest pain and abnormal EKG Cardiology evaluation noted and appreciated Patient is scheduled for stress test on 06/01/2021 Patient continues to have mild intermittent chest pain Hospitalist Physical - Constitutional Vitals: Temp Pulse Resp BP Pulse Ox 98.0 F 86 20 100/65 98 05/30/21 16:07 05/30/21 16:07 05/30/21 16:07 05/30/21 16:07 05/30/21 16:07 General appearance: Present: mild distress, well-nourished - EENT Eyes: Present: PERRL, EOM intact - Neck Neck: Present: supple, normal ROM - Respiratory Respiratory effort: normal Respiratory: bilateral: diminished, negative: rales, rhonchi, wheezing - Cardiovascular Rhythm: regular Heart Sounds: Present: S1 & S2 - Extremities Extremities: no ischemia, No edema - Abdominal General gastrointestinal: soft, non-tender, non-distended, normal bowel sounds - Integumentary Integumentary: Present: clear, warm - Psychiatric Psychiatric: appropriate mood/affect, cooperative - Neurologic Neurologic: CNII-XII intact, moves all extremities HEART Score - HEART Score EKG: Non-specific Age: < 45 Risk factors: 1-2 risk factors Troponin: Troponin T < 0.010 ng/mL (0.00-0.029) 05/30/21 05:26 Troponin: < normal limit - Critical Actions Critical Actions: 0-3 pts:0.9-1.7%risk of adverse cardiac event.Candidate for discharge Results - Labs CBC & Chem 7: 05/29/21 20:24 05/29/21 20:24 Labs: Laboratory Last Values WBC 6.6 K/mm3 (4.5-11.0) 05/29/21 20:24 RBC 4.49 M/mm3 (3.65-5.03) 05/29/21 20:24 Hgb 13.6 gm/dl (11.8-15.2) 05/29/21 20:24 Hct 41.7 % (35.5-45.6) 05/29/21 20:24 MCV 93 fl (84-94) 05/29/21 20:24 MCH 30 pg (28-32) 05/29/21 20:24 MCHC 33 % (32-34) 05/29/21 20:24 RDW 13.6 % (13.2-15.2) 05/29/21 20:24 Plt Count 244 K/mm3 (140-440) 05/29/21 20:24 Lymph % (Auto) 50.0 % (13.4-35.0) H 05/29/21 20:24 [place] % (Auto) 6.8 % (0.0-7.3) 05/29/21 20:24 Eos % (Auto) 0.6 % (0.0-4.3) 05/29/21 20:24 Baso % (Auto) 1.0 % (0.0-1.8) 05/29/21 20:24 Lymph # (Auto) 3.3 K/mm3 (1.2-5.4) 05/29/21 20:24 [place] # (Auto) 0.5 K/mm3 (0.0-0.8) 05/29/21 20:24 Eos # (Auto) 0.0 K/mm3 (0.0-0.4) 05/29/21 20:24 Baso # (Auto) 0.1 K/mm3 (0.0-0.1) 05/29/21 20:24 Seg Neutrophils % 41.6 % (40.0-70.0) 05/29/21 20:24 Seg Neutrophils # 2.7 K/mm3 (1.8-7.7) 05/29/21 20:24 Sodium 137 mmol/L (137-145) 05/29/21 20:24 Potassium 4.4 mmol/L (3.6-5.0) 05/29/21 20:24 Chloride 104.8 mmol/L (98-107) 05/29/21 20:24 Carbon Dioxide 20 mmol/L (22-30) L 05/29/21 20:24 Anion Gap 17 mmol/L 05/29/21 20:24 BUN 16 mg/dL (9-20) 05/29/21 20:24 Creatinine 1.1 mg/dL (0.8-1.3) 05/29/21 20:24 Estimated GFR > 60 ml/min 05/29/21 20:24 BUN/Creatinine Ratio 15 % 05/29/21 20:24 Glucose 78 mg/dL (75-100) 05/29/21 20:24 Calcium 9.1 mg/dL (8.4-10.2) 05/29/21 20:24 Total Bilirubin 1.00 mg/dL (0.1-1.2) 05/29/21 20:24 AST 58 units/L (5-40) H 05/29/21 20:24 ALT 66 units/L (7-56) H 05/29/21 20:24 Alkaline Phosphatase 110 units/L (35-129) 05/29/21 20:24 Troponin T < 0.010 ng/mL (0.00-0.029) 05/30/21 05:26 NT-Pro-B Natriuret Pep 4313 pg/mL (0-450) H 05/29/21 20:24 Total Protein 7.4 g/dL (6.3-8.2) 05/29/21 20:24 Albumin 3.8 g/dL (3.9-5) L 05/29/21 20: Albumin/Globulin Ratio 1.1 % 05/29/21 20: Urine Color Yellow (Yellow) 05/29/21 20: Urine Turbidity Clear (Clear) 05/29/21 20: Urine pH 5.0 (5.0-7.0) 05/29/21 20:23 Ur Specific [place] 1.022 (1.003-1.030) 05/29/21 20:23 Urine Protein >500 mg/dL (Negative) 05/29/21 20:23 Urine Glucose (UA) Neg mg/dL (Negative) 05/29/21 20: Urine Ketones Tr mg/dL (Negative) 05/29/21 20: Urine Blood Neg (Negative) 05/29/21 20: Urine Nitrite Neg (Negative) 05/29/21 20: Urine Bilirubin Neg (Negative) 05/29/21 20: Urine Urobilinogen < 2.0 mg/dL (<2.0) 05/29/21 20:23 Ur Leukocyte Esterase Neg (Negative) 05/29/21 20:23 Urine WBC (Auto) 2.0 /HPF (0.0-6.0) 05/29/21 20:23 Urine RBC (Auto) 2.0 /HPF (0.0-6.0) 05/29/21 20: U Epithel Cells (Auto) 1.0 /HPF (0-13.0) 05/29/21 20: Urine Bacteria (Auto) 1+ /HPF (Negative) 05/29/21 20: Urine Mucus Few /HPF 05/29/21 20:23 Francis/IV: Voiding Method Toilet Active Medications - Current Medications Current Medications: Generic Name Dose Route Start Last Admin Trade Name Freq PRN Reason Stop Dose Admin Acetaminophen 650 mg 05/29/21 22:56 Acetaminophen 325 Mg Tab PO Q4H PRN Pain MILD(1-3)/Fever >100.5/MARTELL Aspirin 325 mg 05/30/21 10:00 05/30/21 12:17 Aspirin Ec 325 Mg Tab PO 325 mg QDAY DARVIN Administration Atorvastatin Calcium 40 mg 05/30/21 22:00 Atorvastatin 40 Mg Tab PO QHS DARVIN Benzonatate 100 mg 05/30/21 06:00 05/30/21 14:25 Benzonatate 100 Mg Cap PO 100 mg Q8HR DARVIN Administration Doxycycline Hyclate 100 mg 05/30/21 10:00 05/30/21 12:16 Doxycycline 100 Mg Cap PO 100 mg Q12HR DARVIN Administration Furosemide 40 mg 05/30/21 06:00 05/30/21 17:18 Furosemide 40 Mg/4 Ml Inj IV 40 mg BID@0600,1800 DARVIN Administration Heparin Sodium (Porcine) 5,000 unit 05/30/21 06:00 05/30/21 14:25 Heparin 5,000 Unit/1 Ml Vial SUB-Q 5,000 unit Q8HR DARVIN Administration Hydromorphone HCl 0.25 mg 05/29/21 23:36 Hydromorphone 1 Mg/1 Ml Inj IV Q5MIN PRN Chest Pain Ibuprofen 600 mg 05/29/21 23:39 Ibuprofen 600 Mg Tab PO Q8H PRN Pain, Mild (1-3) Methocarbamol 500 mg 05/29/21 23:39 Methocarbamol 500 Mg Tab PO BID PRN Muscle Spasm Morphine Sulfate 4 mg 05/29/21 22:56 Morphine 4 Mg/1 Ml Inj IV Q4H PRN Pain , Severe (7-10) Nitroglycerin 0.4 mg 05/29/21 23:36 Nitroglycerin 0.4 Mg Tab Subl SL Q5M PRN Chest Pain Ondansetron HCl 4 mg 05/29/21 22:56 05/29/21 23:15 Ondansetron 4 Mg/2 Ml Inj IV 4 mg Q8H PRN Administration Nausea And Vomiting Oxycodone/Acetaminophen 1 tab 05/29/21 22:56 Oxycodone /Acetaminophen 5-325mg Tab PO Q6H PRN Pain, Moderate (4-6) Pantoprazole Sodium 40 mg 05/30/21 10:00 05/30/21 12:17 Pantoprazole 40 Mg Tab PO 40 mg QDAY DARVIN Administration Sodium Chloride 10 ml 05/30/21 10:00 05/30/21 17:21 Sodium Chloride 0.9% 10 Ml Flush Syringe IV 10 ml BID DARVIN Administration Sodium Chloride 10 ml 05/29/21 23:36 Sodium Chloride 0.9% 10 Ml Flush Syringe IV PRN PRN LINE FLUSH Tramadol HCl 50 mg 05/29/21 23:36 Tramadol 50 Mg Tab PO Q6H PRN Pain, Moderate (4-6) Trimethoprim/Sulfamethoxazole 1 each 05/30/21 10:00 05/30/21 12:16 Sulfamethoxazole/Trimethoprim 800/160mg Ds Tab PO 1 each Q12HR DARVIN Administration Protocol
[2021-05-30] MEDS ORDERED: EMTRICITABINE PO SCH (22:00)
[2021-05-30] MEDS ORDERED: TENOFOVIR PO SCH (22:00)
[2021-05-30] MEDS ORDERED: DOLUTEGRAVIR PO SCH (22:00)
[2021-05-30] MEDS: DOLUTEGRAVIR 50 MG TAB PO SCH (22:15)
[2021-05-30] MEDS: EMTRICITABINE 200 MG CAP PO SCH (22:15)
[2021-05-30] MEDS: TENOFOVIR 300 MG TAB PO SCH (22:15)
[2021-05-31] MEDS: FUROSEMIDE 40 MG/4 ML INJ IV SCH (06:22)
[2021-05-31] MEDS: BENZONATATE 100 MG CAP PO SCH ×3 (06:22→21:12)
[2021-05-31] MEDS: HEPARIN 5,000 UNIT/1 ML VIAL SUB-Q SCH ×3 (06:23→21:11)
[2021-05-31 07:00] LABS: Creatine Kinase MB 1.5 ng/mL (0.0-4.0)
[2021-05-31] MEDS ORDERED: FUROSEMIDE 40 MG/4 ML INJ IV SCH (07:01)
[2021-05-31 07:05] LABS: Chol/HDL Ratio 3.96 %; HDL Cholesterol 33 mg/dL (40-59); LDL Cholesterol,Direct 92 mg/dL (50-130)
[2021-05-31 08:41] LABS: BUN/Creatinine Ratio 19; Blood Urea Nitrogen 27 mg/dL (9-20); Calcium 8.8 mg/dL (8.4-10.2); Hemolysis Index 9
[2021-05-31] MEDS: DOXYCYCLINE 100 MG CAP PO SCH (09:17)
[2021-05-31] MEDS: PANTOPRAZOLE 40 MG TAB PO SCH (09:18)
[2021-05-31] MEDS: ASPIRIN EC 325 MG TAB PO SCH (09:18)
[2021-05-31] MEDS: SULFAMETHOXAZOLE/TRIMETHOPRIM 800/160MG DS TAB PO SCH ×2 (09:18→21:12)
--- NOTE | 2021-05-31 11:39 | Electrocardiograph Report ---
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 consider lateral ischemia No previous ECG available for comparison Electronically Signed On 05-31-2021 11:39:49 EST by Dillon Soriano
--- NOTE | 2021-05-31 11:40 | Progress Note ---
Assessment and Plan Assessment and plan: --Hypotension; Patient's blood pressure in the lower range Will hold diuretics, PANTERA inhibitors nitrates Closely monitor blood pressures, adjust medications as needed Hold beta-blockers, due to 2:1 AV block Cardiology following --New onset of acute systolic CHF EF 15 to 20% Current Visit: Yes Status: Acute Diuretics, input output monitoring, low-sodium diet, fluid restriction Input output monitoring, antifailure medications Ischemia work-up tomorrow possible stress test --Dilated cardiomyopathy; EF 15 to 20% Current Visit: Yes Status: Acute Received antifailure treatment Possible LifeVest prior to discharge And ultimately ICD placement -- Atypical chest pain/evaluate acute coronary syndrome Current Visit: Yes Status: Acute Serial cardiac enzymes , serial EKGs as needed for chest pain aspirin 325 mg p.o. daily. Lipitor 40 mg p.o. daily. Nitroglycerin as needed. Patient's blood pressure in the lower range, will hold off beta-blockers Follow cardiology evaluation recommendations Possible stress test on 06/01/2021 --Acute shortness of breath on exertion Current Visit: Yes Status: Acute Probably secondary to possible congestive heart failure, oxygen titrate O2 sats more than 90% Antifailure medications with diuretics beta-blockers if blood pressures permit input output monitoring Low-sodium diet, home O2 evaluation at discharge, follow echo with LV function ejection fraction --2 : 1 AV block; Current Visit: Yes Status: Acute Hold beta-blockers or all the AV mitch blocking agents Cardiology following --GERD; Current Visit: Yes Status: Acute Probably the cause of atypical chest pain Pepcid and supportive care -- HIV (human immunodeficiency virus infection) Current Visit: Yes Status:Chronic Stable. Continue home HIV medications Patient will follow with private ID/health department upon discharge --Urinary tract infection; per UA Current Visit: Yes Status: Acute Continue Bactrim DS, plenty of oral fluids --DVT prophylaxis. Current Visit: Yes Status: Acute Heparin 5000 units subcu every 8 hours for DVT prophylaxis. Closely monitor the patient and adjust management as needed Plan of care reviewed with the patient and his nurse Possible left heart catheterization tomorrow Patient n.p.o. 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 status from midnight. N.p.o. status from midnight 05/31/2021; new onset dilated cardiomyopathy/acute systolic congestive heart failure EF 15 to 20%, heart cath tomorrow History Interval history: I have seen and examined the patient at the bedside Patient's chart and medications reviewed Echocardiogram; EF 15 to 20%, dilated cardiomyopathy Patient denies any chest pain or shortness of breath Hospitalist Physical - Constitutional Vitals: Temp Pulse Resp BP Pulse Ox 97.8 F 76 18 91/57 99 05/31/21 08:00 05/31/21 08:07 05/31/21 04:17 05/31/21 08:07 05/31/21 08:07 General appearance: Present: no acute distress, well-nourished - EENT Eyes: Present: PERRL, EOM intact - Neck Neck: Present: supple, normal ROM - Respiratory Respiratory effort: labored Respiratory: bilateral: diminished, rales, negative: rhonchi, wheezing - Cardiovascular Rhythm: regular Heart Sounds: Present: S1 & S2 - Extremities Extremities: no ischemia, No edema - Abdominal General gastrointestinal: soft, non-tender, non-distended - Integumentary Integumentary: Present: clear, warm - Psychiatric Psychiatric: appropriate mood/affect, cooperative - Neurologic Neurologic: moves all extremities HEART Score - HEART Score EKG: Non-specific Age: < 45 Risk factors: 1-2 risk factors Troponin: Troponin T < 0.010 ng/mL (0.00-0.029) 05/31/21 05:53 Troponin: < normal limit - Critical Actions Critical Actions: 0-3 pts:0.9-1.7%risk of adverse cardiac event.Candidate for discharge Results - Labs CBC & Chem 7: 05/29/21 20:24 05/31/21 Unknown Labs: Laboratory Last Values WBC 6.6 K/mm3 (4.5-11.0) 05/29/21 20:24 RBC 4.49 M/mm3 (3.65-5.03) 05/29/21 20:24 Hgb 13.6 gm/dl (11.8-15.2) 05/29/21 20: Hct 41.7 % (35.5-45.6) 05/29/21 20:24 MCV 93 fl (84-94) 05/29/21 20:24 MCH 30 pg (28-32) 05/29/21 20: MCHC 33 % (32-34) 05/29/21 20: RDW 13.6 % (13.2-15.2) 05/29/21 20: Plt Count 244 K/mm3 (140-440) 05/29/21 20: Lymph % (Auto) 50.0 % (13.4-35.0) H 05/29/21 20: [place] % (Auto) 6.8 % (0.0-7.3) 05/29/21 20: Eos % (Auto) 0.6 % (0.0-4.3) 05/29/21 20: Baso % (Auto) 1.0 % (0.0-1.8) 05/29/21 20: Lymph # (Auto) 3.3 K/mm3 (1.2-5.4) 05/29/21 20: [place] # (Auto) 0.5 K/mm3 (0.0-0.8) 05/29/21 20:24 Eos # (Auto) 0.0 K/mm3 (0.0-0.4) 05/29/21 20: Baso # (Auto) 0.1 K/mm3 (0.0-0.1) 05/29/21 20:24 Seg Neutrophils % 41.6 % (40.0-70.0) 05/29/21 20: Seg Neutrophils # 2.7 K/mm3 (1.8-7.7) 05/29/21 20: Sodium 138 mmol/L (137-145) 05/31/21 Unknown Potassium 4.1 mmol/L (3.6-5.0) 05/31/21 Unknown Chloride 103.1 mmol/L (98-107) 05/31/21 Unknown Carbon Dioxide 20 mmol/L (22-30) L 05/31/21 Unknown Anion Gap 19 mmol/L 05/31/21 Unknown BUN 27 mg/dL (9-20) H 05/31/21 Unknown Creatinine 1.4 mg/dL (0.8-1.3) H 05/31/21 Unknown Estimated GFR > 60 ml/min 05/31/21 Unknown BUN/Creatinine Ratio 19 % 05/31/21 Unknown Glucose 80 mg/dL (75-100) 05/31/21 Unknown Calcium 8.8 mg/dL (8.4-10.2) 05/31/21 Unknown Total Bilirubin 1.00 mg/dL (0.1-1.2) 05/29/21 20:24 AST 58 units/L (5-40) H 05/29/21 20:24 ALT 66 units/L (7-56) H 05/29/21 20:24 Alkaline Phosphatase 110 units/L (35-129) 05/29/21 20:24 Total Creatine Kinase 63 units/L (55-170) 05/31/21 05:53 CK-MB (CK-2) 1.5 ng/mL (0.0-4.0) 05/31/21 05:53 CK-MB (CK-2) Rel Index 2.3 (0-4) 05/31/21 05:53 Troponin T < 0.010 ng/mL (0.00-0.029) 05/31/21 05:53 NT-Pro-B Natriuret Pep 4313 pg/mL (0-450) H 05/29/21 20:24 Total Protein 7.4 g/dL (6.3-8.2) 05/29/21 20:24 Albumin 3.8 g/dL (3.9-5) L 05/29/21 20:24 Albumin/Globulin Ratio 1.1 % 05/29/21 20:24 Triglycerides 97 mg/dL (2-149) 05/31/21 05:53 Cholesterol 131 mg/dL (50-199) 05/31/21 05:53 LDL Cholesterol Direct 92 mg/dL (50-130) 05/31/21 05:53 HDL Cholesterol 33 mg/dL (40-59) L 05/31/21 05:53 Cholesterol/HDL Ratio 3.96 % 05/31/21 05:53 Urine Color Yellow (Yellow) 05/29/21 20:23 Urine Turbidity Clear (Clear) 05/29/21 20:23 Urine pH 5.0 (5.0-7.0) 05/29/21 20:23 Ur Specific [place] 1.022 (1.003-1.030) 05/29/21 20:23 Urine Protein >500 mg/dL (Negative) 05/29/21 20:23 Urine Glucose (UA) Neg mg/dL (Negative) 05/29/21 20:23 Urine Ketones Tr mg/dL (Negative) 05/29/21 20:23 Urine Blood Neg (Negative) 05/29/21 20:23 Urine Nitrite Neg (Negative) 05/29/21 20:23 Urine Bilirubin Neg (Negative) 05/29/21 20: Urine Urobilinogen < 2.0 mg/dL (<2.0) 05/29/21 20:23 Ur Leukocyte Esterase Neg (Negative) 05/29/21 20:23 Urine WBC (Auto) 2.0 /HPF (0.0-6.0) 05/29/21 20:23 Urine RBC (Auto) 2.0 /HPF (0.0-6.0) 05/29/21 20:23 U Epithel Cells (Auto) 1.0 /HPF (0-13.0) 05/29/21 20:23 Urine Bacteria (Auto) 1+ /HPF (Negative) 05/29/21 20: Urine Mucus Few /HPF 05/29/21 20:23 Francis/IV: Voiding Method Toilet Active Medications - Current Medications Current Medications: Generic Name Dose Route Start Last Admin Trade Name Freq PRN Reason Stop Dose Admin Acetaminophen 650 mg 05/29/21 22:56 Acetaminophen 325 Mg Tab PO Q4H PRN Pain MILD(1-3)/Fever >100.5/MARTELL Aspirin 325 mg 05/30/21 10:00 05/31/21 09:18 Aspirin Ec 325 Mg Tab PO 325 mg QDAY DARVIN Administration Atorvastatin Calcium 40 mg 05/30/21 22:00 05/30/21 21:45 Atorvastatin 40 Mg Tab PO 40 mg QHS DARVIN Administration Benzonatate 100 mg 05/30/21 06:00 05/31/21 06:22 Benzonatate 100 Mg Cap PO 100 mg Q8HR DARVIN Administration Doxycycline Hyclate 100 mg 05/30/21 10:00 05/31/21 09:17 Doxycycline 100 Mg Cap PO 100 mg Q12HR DARVIN Administration Emtricitabine 200 mg 05/30/21 22:00 05/30/21 22:15 Emtricitabine 200 Mg Cap PO 200 mg QHS DARVIN Administration Furosemide 20 mg 05/31/21 07:01 Furosemide 40 Mg/4 Ml Inj IV BID@0600,1800 [facility] Heparin Sodium (Porcine) 5,000 unit 05/30/21 06:00 05/31/21 06:23 Heparin 5,000 Unit/1 Ml Vial SUB-Q Not Given Q8HR DARVIN Hydromorphone HCl 0.25 mg 05/29/21 23:36 Hydromorphone 1 Mg/1 Ml Inj IV Q5MIN PRN Chest Pain Ibuprofen 600 mg 05/29/21 23:39 Ibuprofen 600 Mg Tab PO Q8H PRN Pain, Mild (1-3) Methocarbamol 500 mg 05/29/21 23:39 Methocarbamol 500 Mg Tab PO BID PRN Muscle Spasm Morphine Sulfate 4 mg 05/29/21 22:56 Morphine 4 Mg/1 Ml Inj IV Q4H PRN Pain , Severe (7-10) Nitroglycerin 0.4 mg 05/29/21 23:36 Nitroglycerin 0.4 Mg Tab Subl SL Q5M PRN Chest Pain Ondansetron HCl 4 mg 05/29/21 22:56 05/29/21 23:15 Ondansetron 4 Mg/2 Ml Inj IV 4 mg Q8H PRN Administration Nausea And Vomiting Oxycodone/Acetaminophen 1 tab 05/29/21 22:56 Oxycodone /Acetaminophen 5-325mg Tab PO Q6H PRN Pain, Moderate (4-6) Pantoprazole Sodium 40 mg 05/30/21 10:00 05/31/21 09:18 Pantoprazole 40 Mg Tab PO 40 mg QDAY DARVIN Administration Sodium Chloride 10 ml 05/30/21 10:00 05/31/21 09:18 Sodium Chloride 0.9% 10 Ml Flush Syringe IV 10 ml BID DARVIN Administration Sodium Chloride 10 ml 05/29/21 23:36 Sodium Chloride 0.9% 10 Ml Flush Syringe IV PRN PRN LINE FLUSH Tenofovir Disoproxil Fumarate 300 mg 05/30/21 22:00 05/30/21 22:15 Tenofovir 300 Mg Tab PO 300 mg QHS DARVIN Administration Tramadol HCl 50 mg 05/29/21 23:36 Tramadol 50 Mg Tab PO Q6H PRN Pain, Moderate (4-6) Trimethoprim/Sulfamethoxazole 1 each 05/30/21 10:00 05/31/21 09:18 Sulfamethoxazole/Trimethoprim 800/160mg Ds Tab PO 1 each Q12HR DARVIN Administration Protocol
--- NOTE | 2021-05-31 14:49 | Progress Note ---
Assessment and Plan Hold diuretics for now. Schedule coronary angiography in a.m. ACEI/ARB/Aldactone eventually if and when BP permits. Will avoid beta-sage therapy at this time in view of intermittent 2:1 AV block. Considering his short duration of symptoms before presentation, acute myocarditis is a possibility. - Patient Problems (1) Acute HFrEF (heart failure with reduced ejection fraction) Current Visit: Yes Status: Acute (2) Atypical chest pain Current Visit: Yes Status: Acute (3) Cardiomyopathy Current Visit: Yes Status: Acute (4) Right ventricular dysfunction Current Visit: Yes Status: Acute (5) AV block Current Visit: Yes Status: Acute (6) Mitral regurgitation Current Visit: Yes Status: Acute (7) Pulmonary hypertension Current Visit: Yes Status: Acute (8) PERFECTO (acute kidney injury) Current Visit: Yes Status: Acute (9) HIV (human immunodeficiency virus infection) Current Visit: Yes Status: Chronic Subjective Date of service: 05/31/21 Principal diagnosis: Acute HFrEF, Dilated CMP. Interval history: He feels much better. We have discussed his echocardiogram which revealed evidence of severe dilated cardiomyopathy. Although he remains in normal sinus rhythm, overnight, he demonstrated brief episodes of 2:1 AV block in the [place] agent hours. His creatinine has also increased. Objective Vital Signs Temp Pulse Resp BP Pulse Ox 05/31/21 11:43 98.3 F 75 18 104/69 96 05/31/21 08:07 76 91/57 99 05/31/21 08:00 97.8 F 05/31/21 04:17 98.2 F 80 18 95/63 97 05/30/21 23:17 98.4 F 82 18 102/64 98 05/30/21 23:05 98 05/30/21 20:00 80 05/30/21 19:41 98.0 F 18 115/75 05/30/21 16:07 98.0 F 86 20 100/65 98 05/30/21 16:00 100 - Physical Examination General: No Apparent Distress HEENT: Positive: EOMI, Normocephaly, Mucus Membranes Moist Neck: Positive: neck supple, trachea midline, Carotid Upstroke (full) Cardiac: Positive: Reg Rate and Rhythm, S1/S2 Lungs: Positive: clear to auscultation Neuro: Positive: Grossly Intact Abdomen: Positive: Soft, Active Bowel Sounds. Negative: Tender Skin: Positive: Clear. Negative: Rash Musculoskeletal: Normal Range of Motion Extremities: Present: normal. Absent: edema - Labs and Meds Cardiac Enzymes 05/31/21 Range/Units 05:53 CK-MB (CK-2) 1.5 (0.0-4.0) ng/mL Lipids 05/31/21 Range/Units 05:53 Triglycerides 97 (2-149) mg/dL Cholesterol 131 (50-199) mg/dL HDL Cholesterol 33 L (40-59) mg/dL Cholesterol/HDL Ratio 3.96 % Comprehensive Metabolic Panel 05/31/21 Range/Units Unknown Sodium 138 (137-145) mmol/L Potassium 4.1 (3.6-5.0) mmol/L Chloride 103.1 (98-107) mmol/L Carbon Dioxide 20 L (22-30) mmol/L BUN 27 H (9-20) mg/dL Creatinine 1.4 H (0.8-1.3) mg/dL Glucose 80 (75-100) mg/dL Calcium 8.8 (8.4-10.2) mg/dL - Imaging and Cardiology EKG: image reviewed - Telemetry EKG Rhythm: Sinus Rhythm (with intermittent 2:1 AV block) - EKG Sinus rhythms and dysrhythmias: sinus rhythm AV and intraventricular conduction: intraventricular conducti Repolarization changes or abnormalities: ST or T wave suggestive of ischemia
[2021-05-31] MEDS ORDERED: SODIUM CHLORIDE 0.9% 500 ML 500 ML IV SCH (16:00)
[2021-05-31] MEDS: EMTRICITABINE 200 MG CAP PO SCH (21:11)
[2021-05-31] MEDS: TENOFOVIR 300 MG TAB PO SCH (21:12)
[2021-05-31] MEDS: DOLUTEGRAVIR 50 MG TAB PO SCH (21:12)
[2021-06-01] MEDS: BENZONATATE 100 MG CAP PO SCH ×3 (06:56→22:02)
[2021-06-01] MEDS: HEPARIN 5,000 UNIT/1 ML VIAL SUB-Q SCH ×3 (06:57→22:01)
[2021-06-01 08:02] LABS: BUN/Creatinine Ratio 22; Blood Urea Nitrogen 28 mg/dL (9-20); Calcium 8.9 mg/dL (8.4-10.2); Hemolysis Index 5
[2021-06-01 08:03] LABS: INR 1.08 (0.87-1.13)
[2021-06-01 08:46] LABS: Partial Thromboplastin Time 29.5 Sec. (24.2-36.6)
[2021-06-01] MEDS ORDERED: HEPARIN/NS 5000 UNIT/500ML 1,000 ML IR ONE (09:03)
[2021-06-01] MEDS: ASPIRIN EC 325 MG TAB PO SCH (09:23)
[2021-06-01] MEDS: fentaNYL 100 MCG/2 ML INJ ONE ×3 (09:57→10:11)
[2021-06-01] MEDS: MIDAZOLAM 2 MG/2 ML INJ ONE ×3 (09:59→10:11)
[2021-06-01] MEDS: LIDOCAINE (2%) 20 MG/1 ML VIAL 20 ML MDV INFILTRATI ONE ×2 (09:59→10:08)
[2021-06-01] MEDS ORDERED: SODIUM CHLORIDE 0.9% 500 ML 500 ML IV SCH (10:00)
[2021-06-01] MEDS: VERAPAMIL 5 MG/2 ML INJ ONE ×2 (10:00→10:10)
[2021-06-01] MEDS: HEPARIN 10,000 UNITS/10 ML VIAL ONE ×2 (10:01→10:10)
[2021-06-01] MEDS ORDERED: ASPIRIN EC 325 MG TAB PO SCH (10:56)
[2021-06-01] MEDS: SULFAMETHOXAZOLE/TRIMETHOPRIM 800/160MG DS TAB PO SCH ×2 (11:04→22:02)
[2021-06-01] MEDS: PANTOPRAZOLE 40 MG TAB PO SCH (11:04)
--- NOTE | 2021-06-01 11:20 | Cardiac Catherization Report ---
DATE OF SERVICE: 06/01/2021 CARDIAC CATHETERIZATION REPORT INDICATIONS: The patient is a 41-year-old -[place] gentleman, who was admitted to [facility] on 05/29/2021, with complaints of chest pain and coughing of 2 weeks' duration. Increasing exertional dyspnea over the same period. No orthopnea or PND. On presentation, his BNP was found to be significantly elevated. An echocardiogram was obtained, which showed an ejection fraction to be around 15-20%. Left ventricular systolic function is severely decreased. Normal wall thickness noted. Left ventricle is severely dilated along with mildly hypokinetic right ventricle. Because of his severe LV systolic dysfunction, he was scheduled for diagnostic cardiac catheterization. The patient was diagnosed to have HIV infection in the past, presently on appropriate treatment for the same. He denied any previous cardiac history. His troponins were unremarkable. DESCRIPTION OF PROCEDURE: The patient was brought to the catheterization laboratory in a fasting condition. The patient was evaluated for moderate sedation and was felt to be an appropriate candidate for moderate sedation and received IV Versed and fentanyl. Subsequently, right wrist area was prepared in a standard fashion. Local anesthesia was given in the right wrist area. Right radial artery puncture was made using 21-gauge arterial puncture needle. A 5-[place] slender sheath was introduced without difficulty. He received 5 mg of intra-arterial verapamil and 3000 units of intravenous heparin. Subsequently, 5-[place] multipurpose catheter was used to obtain left ventriculogram done in RIBEIRO projection using hand injection. Subsequently, 5-[place] TIG catheter was used to obtain the angiograms of the left coronary artery and a 6-[place] JR4 catheter was used to obtain the angiograms of the right coronary artery. After obtaining the angiograms, catheters were removed. A radial band will be applied to obtain hemostasis in the right radial artery. The patient was monitored throughout the procedure for moderate sedation with a pulse oximetry, EKG, and hemodynamic monitoring. At the end of the procedure, the patient is communicating normally, breathing normally with no focal deficits. The patient's moderate sedation started at 10:04 a.m. and ended at 10:22 a.m. The patient was transferred to the outpatient area in stable condition. Following findings were noted: 1. Aortic pressure 100/63. Left ventricular pressure 100/30 mmHg. No gradient across the aortic valve. Estimated ejection fraction 10-15%. However, this is a limited injection with hand and severely dilated LV noted. 2. Left ventriculogram done in RIBEIRO projection showed markedly dilated left ventricle with severe diffuse hypokinesis. Ejection fraction was estimated to be 10-15%. End-diastolic pressure was 30-35 mmHg. 3. Right coronary artery arises normally from right coronary cusp. This is a codominant vessel, angiographically smooth and normal. 4. Left coronary artery arises normally from left coronary cusp. Left main, LAD, which curves around the apex and its branches and circumflex artery and its branches are angiographically smooth and normal. FINAL IMPRESSION: 1. Severely dilated left ventricle with severe diffuse hypokinesis, ejection fraction 10-15% with markedly elevated end diastolic pressure of 30-35 mmHg. 2. Normal coronary anatomy noted. 3. Procedure was uncomplicated. No untoward complications were noted. Findings were explained to the patient. At this time, we will continue aggressive medical therapy. May benefit from consideration of LifeVest considering his poor LV function. No untoward complications were noted. TID: [id number] RECEIPT: [id number] SUNITA/BILLY LARA
--- NOTE | 2021-06-01 14:47 | Progress Note ---
Assessment and Plan Echo 05/29/2021-EF 15 to 20%, LV is severely dilated. Left atrium is severely dilated. Right ventricle is moderately dilated. Right ventricle is mildly hypokinetic. Moderate pulmonary hypertension. Severe mitral regurgitation. Moderate tricuspid regurgitation. Cardiac catheterization 06/01/2021-severely dilated left ventricle with severe diffuse hypokinesis. EF 10 to 15% with markedly elevated end-diastolic pressure 30 to 35 mmHg. Normal coronary anatomy. Continue medical therapy. LifeVest pending Continue aspirin and Lipitor. Initiate losartan 12.5 mg p.o. daily. Will hold BB due to soft BP and AV block Patient seen in conjunction with Dr. Ovalles who agrees with this plan of care. We will continue to follow - Patient Problems (1) PERFECTO (acute kidney injury) Current Visit: Yes Status: Acute (2) AV block Current Visit: Yes Status: Acute (3) Acute HFrEF (heart failure with reduced ejection fraction) Current Visit: Yes Status: Acute (4) Atypical chest pain Current Visit: Yes Status: Acute (5) Cardiomyopathy Current Visit: Yes Status: Acute (6) Pulmonary hypertension Current Visit: Yes Status: Acute (7) Right ventricular dysfunction Current Visit: Yes Status: Acute (8) HIV (human immunodeficiency virus infection) Current Visit: Yes Status: Chronic Subjective Date of service: 06/01/21 Principal diagnosis: Acute HFrEF, Dilated CMP. Interval history: Patient for cardiac cath this AM sinus 92 with episode of NSVT Objective Vital Signs Temp Pulse Pulse Resp BP BP Pulse Ox 06/01/21 09:39 98.0 F 86 16 96/60 100 06/01/21 09:36 86 06/01/21 08:00 98 06/01/21 04:49 97.5 F L 76 16 106/69 98 05/31/21 23:24 97.3 F L 76 16 107/66 97 05/31/21 20:48 98 05/31/21 19:25 97.8 F 78 16 106/70 98 05/31/21 16:33 79 98/72 97 05/31/21 15:00 98 - Physical Examination General: No Apparent Distress HEENT: Positive: EOMI, Normocephaly, Mucus Membranes Moist Neck: Positive: neck supple, trachea midline, Carotid Upstroke (full) Cardiac: Positive: Reg Rate and Rhythm Lungs: Positive: Normal Breath Sounds Neuro: Positive: Grossly Intact Abdomen: Positive: Soft, Active Bowel Sounds. Negative: Tender Skin: Positive: Clear. Negative: Rash Musculoskeletal: Normal Range of Motion Extremities: Present: normal. Absent: edema - Labs and Meds Coagulation 06/01/21 Range/Units 07:27 PT 15.2 H (12.2-14.9) Sec. INR 1.08 (0.87-1.13) APTT 29.5 (24.2-36.6) Sec. Comprehensive Metabolic Panel 06/01/21 Range/Units 07:27 Sodium 137 (137-145) mmol/L Potassium 4.5 (3.6-5.0) mmol/L Chloride 100.2 (98-107) mmol/L Carbon Dioxide 27 D (22-30) mmol/L BUN 28 H (9-20) mg/dL Creatinine 1.3 (0.8-1.3) mg/dL Glucose 106 H (75-100) mg/dL Calcium 8.9 (8.4-10.2) mg/dL - Imaging and Cardiology EKG: image reviewed - Telemetry EKG Rhythm: Sinus Rhythm - EKG Sinus rhythms and dysrhythmias: sinus rhythm AV and intraventricular conduction: intraventricular conducti Repolarization changes or abnormalities: ST or T wave suggestive of ischemia
[2021-06-01] MEDS: ASPIRIN 81 MG TAB CHEW PO SCH (15:12)
--- NOTE | 2021-06-01 20:27 | Progress Note ---
Assessment and Plan Assessment and plan: --Dilated cardiomyopathy; EF 15 to 20% Current Visit: Yes Status: Acute Received antifailure treatment Possible LifeVest prior to discharge And ultimately ICD placement --Ischemia work-up Patient has newly diagnosed dilated cardiomyopathy; 15 to 20% Left heart catheterization today CC needed for the physician, no obstructive coronaries Nonischemic cardiomyopathy Cardiology recommended LifeVest placement prior to discharge Case management processing it Continue current management -- Atypical chest pain/evaluate acute coronary syndrome Current Visit: Yes Status: Acute Patient had left heart catheterization today 06/01/2021 Nonobstructive coronaries, cardiology recommended --Hypotension; Patient's blood pressure in the lower range Will hold diuretics, PANTERA inhibitors nitrates Closely monitor blood pressures, adjust medications as needed Hold beta-blockers, due to 2:1 AV block Cardiology following --new onset of acute systolic CHF EF 15 to 20% Current Visit: Yes Status: Acute Diuretics, input output monitoring, low-sodium diet, fluid restriction Input output monitoring, antifailure medications Ischemia work-up tomorrow possible stress test --Acute shortness of breath on exertion Current Visit: Yes Status: Acute Probably secondary to possible congestive heart failure, oxygen titrate O2 sats more than 90% Antifailure medications with diuretics beta-blockers if blood pressures permit input output monitoring Low-sodium diet, home O2 evaluation at discharge, follow echo with LV function ejection fraction --2 : 1 AV block; Current Visit: Yes Status: Acute Hold beta-blockers or all the AV mitch blocking agents Cardiology following --GERD; Current Visit: Yes Status: Acute Probably the cause of atypical chest pain Pepcid and supportive care -- HIV (human immunodeficiency virus infection) Current Visit: Yes Status:Chronic Stable. Continue home HIV medications Patient will follow with private ID/health department upon discharge --Urinary tract infection; per UA Current Visit: Yes Status: Acute Continue Bactrim DS, plenty of oral fluids --DVT prophylaxis. Current Visit: Yes Status: Acute Heparin 5000 units subcu every 8 hours for DVT prophylaxis. Cardiology recommended LifeVest placement prior to discharge Case management assisting with securing LifeVest prior to discharge Patient has social issues. Disposition; discharge when patient is medically stable and when cardiology clears after securing LifeVest Brief history and daily hospital course 41-year-old -Italian male patient with significant past medical history of HIV AIDS ongoing tobacco use and alcohol use was admitted through emergency room with intermittent chest pain with mild shortness of breath and cough for the last 2 weeks, patient was evaluated by cardiology, scheduled for stress test for tomorrow however echocardiogram revealed new onset acute systolic congestive heart failure with ejection fraction of 15 to 20%, Dilated cardiomyopathy, line therapist DC'd stress test and was planning to do left heart catheterization to rule out ischemia scheduled for tomorrow patient will be n.p.o. status from midnight. N.p.o. status from midnight 05/31/2021; new onset dilated cardiomyopathy/acute systolic congestive heart failure EF 15 to 20%, heart cath tomorrow 06/01; left heart catheterization today, nonobstructive coronaries, EF 15 to 20% Nonischemic cardiomyopathy, cardiology recommend LifeVest prior to discharge Patient is borderline hypotension, and 2:1 heart block, adjust the cardiac me dications Disposition; discharge when patient is medically stable and when cardiology clears after securing LifeVest History Interval history: I have seen and examined the patient this evening Patient's chart and medications reviewed Patient had negative heart cath, cardiomyopathy with EF of 15 to 20% Patient tolerated the procedure well no new complaints Hospitalist Physical - Constitutional Vitals: Temp Pulse Resp BP Pulse Ox 97.6 F 79 18 99/64 98 06/01/21 16:39 06/01/21 16:39 06/01/21 16:39 06/01/21 16:39 06/01/21 16:39 General appearance: Present: no acute distress, well-nourished - EENT Eyes: Present: PERRL, EOM intact - Neck Neck: Present: supple, normal ROM - Respiratory Respiratory effort: normal Respiratory: bilateral: diminished, rales, negative: rhonchi, wheezing - Cardiovascular Rhythm: regular Heart Sounds: Present: S1 & S2 - Extremities Extremities: no ischemia, No edema - Abdominal General gastrointestinal: soft, non-tender, non-distended, normal bowel sounds - Integumentary Integumentary: Present: clear, warm - Psychiatric Psychiatric: appropriate mood/affect, cooperative - Neurologic Neurologic: CNII-XII intact, moves all extremities HEART Score - HEART Score EKG: Non-specific Age: < 45 Risk factors: 1-2 risk factors Troponin: Troponin T < 0.010 ng/mL (0.00-0.029) 05/31/21 05:53 Troponin: < normal limit - Critical Actions Critical Actions: 0-3 pts:0.9-1.7%risk of adverse cardiac event.Candidate for discharge Results - Labs CBC & Chem 7: 05/29/21 20:24 06/01/21 07:27 Labs: Laboratory Last Values WBC 6.6 K/mm3 (4.5-11.0) 05/29/21 20:24 RBC 4.49 M/mm3 (3.65-5.03) 05/29/21 20:24 Hgb 13.6 gm/dl (11.8-15.2) 05/29/21 20:24 Hct 41.7 % (35.5-45.6) 05/29/21 20:24 MCV 93 fl (84-94) 05/29/21 20:24 MCH 30 pg (28-32) 05/29/21 20:24 MCHC 33 % (32-34) 05/29/21 20:24 RDW 13.6 % (13.2-15.2) 05/29/21 20:24 Plt Count 244 K/mm3 (140-440) 05/29/21 20:24 Lymph % (Auto) 50.0 % (13.4-35.0) H 05/29/21 20:24 Cotton % (Auto) 6.8 % (0.0-7.3) 05/29/21 20:24 Eos % (Auto) 0.6 % (0.0-4.3) 05/29/21 20:24 Baso % (Auto) 1.0 % (0.0-1.8) 05/29/21 20:24 Lymph # (Auto) 3.3 K/mm3 (1.2-5.4) 05/29/21 20:24 Cotton # (Auto) 0.5 K/mm3 (0.0-0.8) 05/29/21 20:24 Eos # (Auto) 0.0 K/mm3 (0.0-0.4) 05/29/21 20:24 Baso # (Auto) 0.1 K/mm3 (0.0-0.1) 05/29/21 20:24 Seg Neutrophils % 41.6 % (40.0-70.0) 05/29/21 20:24 Seg Neutrophils # 2.7 K/mm3 (1.8-7.7) 05/29/21 20:24 PT 15.2 Sec. (12.2-14.9) H 06/01/21 07:27 INR 1.08 (0.87-1.13) 06/01/21 07:27 APTT 29.5 Sec. (24.2-36.6) 06/01/21 07:27 Sodium 137 mmol/L (137-145) 06/01/21 07:27 Potassium 4.5 mmol/L (3.6-5.0) 06/01/21 07:27 Chloride 100.2 mmol/L (98-107) 06/01/21 07:27 Carbon Dioxide 27 mmol/L (22-30) D 06/01/21 07:27 Anion Gap 14 mmol/L 06/01/21 07:27 BUN 28 mg/dL (9-20) H 06/01/21 07:27 Creatinine 1.3 mg/dL (0.8-1.3) 06/01/21 07:27 Estimated GFR > 60 ml/min 06/01/21 07:27 BUN/Creatinine Ratio 22 % 06/01/21 07:27 Glucose 106 mg/dL (75-100) H 06/01/21 07:27 POC Glucose 85 mg/dL (70-105) 06/01/21 07:50 Calcium 8.9 mg/dL (8.4-10.2) 06/01/21 07:27 Total Bilirubin 1.00 mg/dL (0.1-1.2) 05/29/21 20:24 AST 58 units/L (5-40) H 05/29/21 20:24 ALT 66 units/L (7-56) H 05/29/21 20:24 Alkaline Phosphatase 110 units/L (35-129) 05/29/21 20:24 Total Creatine Kinase 63 units/L (55-170) 05/31/21 05:53 CK-MB (CK-2) 1.5 ng/mL (0.0-4.0) 05/31/21 05:53 CK-MB (CK-2) Rel Index 2.3 (0-4) 05/31/21 05:53 Troponin T < 0.010 ng/mL (0.00-0.029) 05/31/21 05:53 NT-Pro-B Natriuret Pep 4313 pg/mL (0-450) H 05/29/21 20:24 Total Protein 7.4 g/dL (6.3-8.2) 05/29/21 20:24 Albumin 3.8 g/dL (3.9-5) L 05/29/21 20:24 Albumin/Globulin Ratio 1.1 % 05/29/21 20:24 Triglycerides 97 mg/dL (2-149) 05/31/21 05:53 Cholesterol 131 mg/dL (50-199) 05/31/21 05:53 LDL Cholesterol Direct 92 mg/dL (50-130) 05/31/21 05:53 HDL Cholesterol 33 mg/dL (40-59) L 05/31/21 05:53 Cholesterol/HDL Ratio 3.96 % 05/31/21 05:53 Urine Color Yellow (Yellow) 05/29/21 20:23 Urine Turbidity Clear (Clear) 05/29/21 20: Urine pH 5.0 (5.0-7.0) 05/29/21 20:23 Ur Specific [place] 1.022 (1.003-1.030) 05/29/21 20:23 Urine Protein >500 mg/dL (Negative) 05/29/21 20:23 Urine Glucose (UA) Neg mg/dL (Negative) 05/29/21 20: Urine Ketones Tr mg/dL (Negative) 05/29/21 20:23 Urine Blood Neg (Negative) 05/29/21 20:23 Urine Nitrite Neg (Negative) 05/29/21 20: Urine Bilirubin Neg (Negative) 05/29/21 20: Urine Urobilinogen < 2.0 mg/dL (<2.0) 05/29/21 20:23 Ur Leukocyte Esterase Neg (Negative) 05/29/21 20:23 Urine WBC (Auto) 2.0 /HPF (0.0-6.0) 05/29/21 20: Urine RBC (Auto) 2.0 /HPF (0.0-6.0) 05/29/21 20: U Epithel Cells (Auto) 1.0 /HPF (0-13.0) 05/29/21 20: Urine Bacteria (Auto) 1+ /HPF (Negative) 05/29/21 20:23 Urine Mucus Few /HPF 05/29/21 20:23 Francis/IV: Voiding Method Toilet Active Medications - Current Medications Current Medications: Generic Name Dose Route Start Last Admin Trade Name Freq PRN Reason Stop Dose Admin Acetaminophen 650 mg 05/29/21 22:56 Acetaminophen 325 Mg Tab PO Q4H PRN Pain MILD(1-3)/Fever >100.5/MARTELL Aspirin 81 mg 06/01/21 12:00 06/01/21 15:12 Aspirin 81 Mg Tab Chew PO 81 mg QDAY DARVIN Administration Atorvastatin Calcium 40 mg 05/30/21 22:00 05/31/21 21:12 Atorvastatin 40 Mg Tab PO 40 mg QHS [facility] Administration Benzonatate 100 mg 05/30/21 06:00 06/01/21 15:13 Benzonatate 100 Mg Cap PO 100 mg Q8HR [facility] Administration Emtricitabine 200 mg 05/30/21 22:00 05/31/21 21:11 Emtricitabine 200 Mg Cap PO 200 mg QHS [facility] Administration Heparin Sodium (Porcine) 5,000 unit 05/30/21 06:00 06/01/21 15:15 Heparin 5,000 Unit/1 Ml Vial SUB-Q Not Given Q8HR [facility] Hydromorphone HCl 0.25 mg 05/29/21 23:36 Hydromorphone 1 Mg/1 Ml Inj IV Q5MIN PRN Chest Pain Losartan Potassium 12.5 mg 06/02/21 12:00 Losartan 25 Mg Tab PO QDAY [facility] Methocarbamol 500 mg 05/29/21 23:39 Methocarbamol 500 Mg Tab PO BID PRN Muscle Spasm Morphine Sulfate 4 mg 05/29/21 22:56 Morphine 4 Mg/1 Ml Inj IV Q4H PRN Pain , Severe (7-10) Nitroglycerin 0.4 mg 05/29/21 23:36 Nitroglycerin 0.4 Mg Tab Subl SL Q5M PRN Chest Pain Ondansetron HCl 4 mg 05/29/21 22:56 05/29/21 23:15 Ondansetron 4 Mg/2 Ml Inj IV 4 mg Q8H PRN Administration Nausea And Vomiting Oxycodone/Acetaminophen 1 tab 05/29/21 22:56 Oxycodone /Acetaminophen 5-325mg Tab PO Q6H PRN Pain, Moderate (4-6) Pantoprazole Sodium 40 mg 05/30/21 10:00 06/01/21 11:04 Pantoprazole 40 Mg Tab PO 40 mg QDAY DARVIN Administration Sodium Chloride 10 ml 05/30/21 10:00 06/01/21 11:06 Sodium Chloride 0.9% 10 Ml Flush Syringe IV Not Given BID DARVIN Sodium Chloride 10 ml 05/29/21 23:36 Sodium Chloride 0.9% 10 Ml Flush Syringe IV PRN PRN LINE FLUSH Tenofovir Disoproxil Fumarate 300 mg 05/30/21 22:00 05/31/21 21:12 Tenofovir 300 Mg Tab PO 300 mg QHS DARVIN Administration Tramadol HCl 50 mg 05/29/21 23:36 Tramadol 50 Mg Tab PO Q6H PRN Pain, Moderate (4-6) Trimethoprim/Sulfamethoxazole 1 each 05/30/21 10:00 06/01/21 11:04 Sulfamethoxazole/Trimethoprim 800/160mg Ds Tab PO 06/05/21 22:01 1 each Q12HR DARVIN Administration Protocol
[2021-06-01] MEDS ORDERED: carvediloL 3.125 MG TAB PO SCH (22:00)
[2021-06-01] MEDS: TENOFOVIR 300 MG TAB PO SCH (22:03)
[2021-06-01] MEDS: DOLUTEGRAVIR 50 MG TAB PO SCH (22:03)
[2021-06-01] MEDS: EMTRICITABINE 200 MG CAP PO SCH (22:03)
[2021-06-02] MEDS: HEPARIN 5,000 UNIT/1 ML VIAL SUB-Q SCH (07:02)
[2021-06-02] MEDS: BENZONATATE 100 MG CAP PO SCH (07:02)
[2021-06-02] MEDS: ASPIRIN 81 MG TAB CHEW PO SCH (10:11)
[2021-06-02] MEDS: PANTOPRAZOLE 40 MG TAB PO SCH (10:11)
[2021-06-02] MEDS: SULFAMETHOXAZOLE/TRIMETHOPRIM 800/160MG DS TAB PO SCH (10:11)
--- NOTE | 2021-06-02 11:07 | Electrocardiograph Report ---
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
--- NOTE | 2021-06-02 11:30 | Electrocardiograph Report ---
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
[2021-06-02] MEDS ORDERED: LOSARTAN 25 MG TAB PO SCH (12:00)
--- NOTE | 2021-06-02 12:54 | Discharge Summary ---
Providers - Providers Date of Admission: 05/30/21 00:19 Date of discharge: 06/02/21 Attending physician: STEPHANIE OCLLADO 05/29/21 Consult to Cardiac Rehabilitation [CONS] Routine Reason For Exam: Phase I 05/29/21 23:36 Consult to Cardiology [CONS] Routine Consulting Provider: SEJAL COLLINS Reason For Exam: chf Primary care physician: YAHIR MENDES MD Hospitalization Condition: Stable Disposition: 01 HOME / SELF CARE / HOMELESS Exam - Constitutional Vitals: Temp Pulse Resp BP Pulse Ox 97.9 F 84 18 106/76 100 06/02/21 08:10 06/02/21 08:10 06/02/21 08:10 06/02/21 08:10 06/02/21 09:38 Plan Follow up with: PRIMARY CARE, [Primary Care Provider] - 3-5 Days Prescriptions: AtorvaSTATin [Lipitor] 40 mg PO QHS #30 tablet Aspirin [Aspirin BABY CHEW TAB] 81 mg PO QDAY #30 tab.chew Losartan [Cozaar] 12.5 mg PO QDAY #30 tablet
--- NOTE | 2021-06-02 13:13 | Progress Note ---
Assessment and Plan Echo 05/29/2021-EF 15 to 20%, LV is severely dilated. Left atrium is severely dilated. Right ventricle is moderately dilated. Right ventricle is mildly hypokinetic. Moderate pulmonary hypertension. Severe mitral regurgitation. Moderate tricuspid regurgitation. Cardiac catheterization 06/01/2021-severely dilated left ventricle with severe diffuse hypokinesis. EF 10 to 15% with markedly elevated end-diastolic pressure 30 to 35 mmHg. Normal coronary anatomy. Continue medical therapy. LifeVest pending Continue aspirin and Lipitor. Continue losartan 12.5 mg p.o. daily. Will continue to hold BB due to soft BP and AV block Patient cardiac status stable for discharge once LifeVest is delivered Patient is to follow-up with Dr. Soriano, [facility] medical billing specialist, on 06/16/2021 at 8:30 AM at our [place] location. Phone [phone] Patient seen in conjunction with Dr. Ovalles who agrees with this plan of care. - Patient Problems (1) PERFECTO (acute kidney injury) Current Visit: Yes Status: Acute (2) AV block Current Visit: Yes Status: Acute (3) Acute HFrEF (heart failure with reduced ejection fraction) Current Visit: Yes Status: Acute (4) Atypical chest pain Current Visit: Yes Status: Acute (5) Cardiomyopathy Current Visit: Yes Status: Acute (6) Pulmonary hypertension Current Visit: Yes Status: Acute (7) Right ventricular dysfunction Current Visit: Yes Status: Acute (8) HIV (human immunodeficiency virus infection) Current Visit: Yes Status: Chronic Subjective Date of service: 06/02/21 Principal diagnosis: Acute HFrEF, Dilated CMP. Interval history: Patient sitting in chair in no acute distress. Reports feeling well with no cardiac complaints Sinus 79 with AV block Objective Vital Signs Temp Pulse Resp BP Pulse Ox 06/02/21 09:38 100 06/02/21 08:10 97.9 F 84 18 106/76 98 06/02/21 04:25 97.5 F L 70 16 98/61 100 06/01/21 23:19 97.5 F L 79 18 108/64 97 06/01/21 22:00 83 06/01/21 20:00 98 06/01/21 16:39 97.6 F 79 18 99/64 98 - Physical Examination General: No Apparent Distress HEENT: Positive: EOMI, Normocephaly, Mucus Membranes Moist Neck: Positive: neck supple, trachea midline, Carotid Upstroke (full) Cardiac: Positive: Reg Rate and Rhythm Lungs: Positive: clear to auscultation, Normal Breath Sounds Neuro: Positive: Grossly Intact Abdomen: Positive: Soft, Active Bowel Sounds. Negative: Tender Skin: Positive: Clear. Negative: Rash Musculoskeletal: Normal Range of Motion Extremities: Present: normal, upper extr. pulses. Absent: edema - Imaging and Cardiology EKG: image reviewed Cardiac cath: report reviewed - EKG Sinus rhythms and dysrhythmias: sinus rhythm AV and intraventricular conduction: 2 to 1 AV block, intraventricular conducti Repolarization changes or abnormalities: ST or T wave suggestive of ischemia
[2021-06-02 16:45] VITALS: BP 111/72
--- NOTE | 2021-06-04 09:29 | Electrocardiograph Report ---
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 Electronically Signed On 06-04-2021 9:29:23 EST by Tio Ovalles
== END 2021-06-02 17:07 | disposition home or self-care (01) | DRG 287 ==
LOC: ED 17:40 → 4A 05-30 00:19
PROVIDERS: ADMIT Hospitalist; ATTEND Internal Medicine
PROC: 4A023N7 Measurement of Cardiac Sampling and Pressure, Left Heart, Percutaneous Approach (ICD-10-PCS; principal; 2021-06-01)
PROC: B2111ZZ Fluoroscopy of Multiple Coronary Arteries using Low Osmolar Contrast (ICD-10-PCS; 2021-06-01)
PROC: B2151ZZ Fluoroscopy of Left Heart using Low Osmolar Contrast (ICD-10-PCS; 2021-06-01)
DX: I50.21 Acute systolic (congestive) heart failure (principal); B20 Human immunodeficiency virus [HIV] disease; N39.0 Urinary tract infection, site not specified; N17.9 Acute kidney failure, unspecified; I42.0 Dilated cardiomyopathy; I44.1 Atrioventricular block, second degree; K21.9 Gastro-esophageal reflux disease without esophagitis; I34.0 Nonrheumatic mitral (valve) insufficiency; I27.20 Pulmonary hypertension, unspecified; Z20.822 Contact with and (suspected) exposure to COVID-19; I95.9 Hypotension, unspecified
CPT/HCPCS: 36415; 71046; 80048; 80053; 80061; 81001; 82550; 82553; 82962; 83880; 84484; 85025; 85610; 85730; 93005; 93306; 93458; G0378; C1887; C1894; J1644; J1940; J2250; J2405; J3010; J7512; Q9967